=== PATIENT | female | born 1950 | race Caucasian/White ===

== ENCOUNTER 2018-08-09 08:38 | Outpatient (REF) | payer MEDICARE, SELFPAY ==
[2018-08-09 13:38] LABS: ALT 28 U/L (12-78); AST 21 U/L (15-37); HDL Cholesterol 48 mg/dL (40-60); LDL CHOLESTEROL 101 mg/dL (<100)
[2018-08-09 14:12] LABS: Creatine Kinase 69 U/L (26-192)
== END 2018-08-09 08:58 ==
LOC: NCHCN 08:38
PROVIDERS: PCP Nurse Practitioner Family; Visit Provider Nurse Practitioner Family
DX: E78.5 Hyperlipidemia, unspecified (principal)
CPT/HCPCS: 82550; 83721; 83718; 84450; 84460

== ENCOUNTER 2018-12-29 07:20 | Emergency (ER) | payer MEDICARE, SELFPAY ==
[2018-12-29 07:26] VITALS: BP 135/61; PULSE 78; RESP 14; TEMP 36.6; O2SAT 98
[2018-12-29] MEDS: predniSONE 20 MG TAB 60 MG PO (07:51)
[2018-12-29] MEDS: diphenhydrAMINE 25 MG CAP PO (07:51)
--- NOTE | 2018-12-29 07:52 | ED.GENADUL_ITS ---
Discharge Plan Disposition Patient Disposition: HOME Condition: Good Discharge Details Chief Complaint: RashLesion Clinical Impression: Hives Primary Care Provider: Nimo Argueta ED Provider: Fransisco Craft Home Meds and New Rx's Prescriptions: New diphenhydramine HCl [Benadryl] 25 MG capsule 25 mg PO Q6H Qty: 100 RF: 0 prednisone 50 MG tablet 50 mg PO DAILY Qty: 5 RF: 0 No Action rosuvastatin [Crestor] 10 MG tablet 40 mg PO DAILY RF: 0 Discharge Instructions Instructions: Urticaria (ED) Additional Instructions: Please take medication as directed. If you notice any worsening of your symptoms, or any new symptoms such as vomiting, diarrhea, fever, chills, shortness of breath, chest pain, numbness, weakness, or fainting , please return immediately to the emergency department for reevaluation. Please follow up with your primary care provider as soon as possible for reassessment and reevaluation. As always, it was a pleasure participating in your medical care today. Referrals: Nimo Argueta [Primary Care Provider] - Medical Decision Making This is a pleasant 68-year-old female who presents for evaluation of rash. Patient states that last night she began itching and then today she noted a rash over her chest abdomen back and axilla. No oral lesions, no complaint of difficulty swallowing, breathing. no oral lesions on exam. No lesions on the palms or soles. Patient absolutely denies any risk factors of change in perfume, soaps, shampoo, detergent, or any new foods whatsoever. She has a history of getting hives like this in the past usually secondary to stress. Is been a few years since she is static. With no red flags concerning for Martinez- Alfonzo syndrome, toxic epidermal macro lysis or staph scalded skin syndrome, no evidence of erythema multiforme, I feel the patient signs and symptoms are clinically consistent with widely quickly be brought on by histamine component from stress. We will give the patient Benadryl and steroids here, as well as prescription for home use. We discussed red flags for which to return the patient understands. I have extensively reviewed the treatment plan and discharge instructions with the patient and their family. I have addressed all patient concerns at this time. The patient and family was made aware of what symptoms to monitor for that would warrant a return to the emergency department. Discussed the plan with the patient and family, they demonstrate verbal understanding and agreement with our assessment and plan at this time. HPI General Date/Time Provider Initiated Documentation: 12/29/18 07:34 . HPI Narrative: This is a 68-year-old female with a past medical history of high cholesterol as well as hives secondary to stress that occurs occasionally, who presents today for evaluation of hives. Patient states that last night she began itching everywhere, and this morning she noticed a rash all over her axilla, back, chest abdomen and legs. It is notably pruritic. She denies any bleeding. She denies any lesions in her mouth, she denies any difficulty breathing or swallowing, she denies any shortness of breath. She states that the symptoms are similar to when she has had a previous episodes of hives. She denies any new pets, new detergents, new soaps, perfumes, new food, ingestion of oral shellfish recently, or any new foods in general. She had a burger on lettuce last nothing else. Patient has no other complaints at this time. No other modifying factors. Related Data Home Medications Medication Instructions Recorded Confirmed rosuvastatin [Crestor] 40 mg PO DAILY tab-cap 04/23/18 12/29/18 diphenhydramine HCl [Benadryl] 25 mg PO Q6H #100 cap 12/29/18 prednisone 50 mg PO DAILY #5 tab 12/29/18 Previous Rx's Medication Instructions Recorded diphenhydramine HCl [Benadryl] 25 mg PO Q6H #100 cap 12/29/18 prednisone 50 mg PO DAILY #5 tab 12/29/18 Allergies Allergy/AdvReac Type Severity Reaction Status Date / Time chlordiazepoxide HCl Allergy Severe Unverified 12/29/18 07:28 [From Librium] codeine Allergy Severe Unverified 12/29/18 07:28 Penicillins Allergy Severe Unverified 12/29/18 07:28 Sulfa (Sulfonamide Allergy Severe Unverified 12/29/18 07:28 Antibiotics) diazepam [From Valium] Allergy Unverified 12/29/18 07:28 General Stated Complaint: RashLesion ADIS: 3 Review of Systems Review of Systems All systems reviewed & are unremarkable except as noted in HPI and below PFSH Medical History Anxiety Cluster headache Depressive disorder Dyslipidemia Dysuria Elevated blood pressure reading Facial pain GERD (gastroesophageal reflux disease) Hyperlipidemia Low back pain Memory loss Mitral valve prolapse Osteoarthritis Other specified gastritis without mention of hemorrhage Recurrent UTI Trigeminal neuralgia Vaginal prolapse White matter disease Surgical History Abdominal hysterectomy Appendectomy Bilateral salpingectomy with oophorectomy Cholecystectomy Colonoscopy - MAC (06/21/18) Open Carpal Tunnel release Social History Smoking and Tabacco status: Former Tobacco Use Exam Narrative Exam Narrative: 1.Const: Well-nourished, Well-developed, appearing stated age 2.Eyes: PERRL, no conjunctival injection, and symmetrical lids. 3.ENT: Atraumatic external nose and ears. Moist MM. Neck: Symmetric, trachea midline, No thyromegaly. 4.CVS: +S1/S2, No murmurs or gallops. Peripheral pulses 2+ and equal in all extremities. Brisk capillary refill in all extremities. 5.RESP: Unlabored respiratory effort. Clear to auscultation bilaterally. No wheezes rales or rhonchi 6.GI: Soft, Nontender/Nondistended, No hepatosplenomegaly. No guarding or rebound. 7.MSK: Normocephalic/Atraumatic, Extremities w/o deformity or ttp No cyanosis or clubbing, Normal movement of all extremities 8.Skin: Patient demonstrates hives which are mild over her chest abdomen back arms axilla and legs. All are blanchable. Negative Nikolsky sign. No evidence of significant erythema suggestive of staph scalded skin syndrome, toxic epidermal macro lysis, Martinez-Alfonzo syndromes. No involvement on the hands or soles, no oral lesions. 9.Neuro: literature teacher II-XII grossly intact. Sensation grossly intact, no focal neurologic deficits. 10.Psych: (AAO) x3. Appropriate mood and affect Course Vital Signs Temperature 36.6 C 12/29/18 07:26 Pulse 78 12/29/18 07:26 Respiratory Rate 14 12/29/18 07:26 Blood Pressure 135/61 12/29/18 07:26 Pulse Oximetry 98 12/29/18 07:26 Temperature 36.6 C 12/29/18 07:26 Temperature Source Temporal Artery Scan 12/29/18 07:26 Pulse 78 12/29/18 07:26 Respiratory Rate 14 12/29/18 07:26 Respiratory Effort Non-Labored 12/29/18 07:27 Blood Pressure 135/61 12/29/18 07:26 Blood Pressure Position Sitting 12/29/18 07:26 Pulse Oximetry 98 12/29/18 07:26 Oxygen Delivery Method Room Air 12/29/18 07:26 Oxygen Flow Rate 0 12/29/18 07:26 Pain Level 0 12/29/18 07:26
--- NOTE | 2018-12-31 10:41 | NUR.NOTE ---
Nursing Note: Work Release note faxed to [facility] and copy mailed to patient. Solange Oropeza. Fax [facility] [phone].
== END 2018-12-29 08:00 | disposition home or self-care (01) ==
PROVIDERS: Emergency Provider Student in an Organized Health Care Education/Training Program; PCP Nurse Practitioner Family
DX: L50.9 Urticaria, unspecified (principal); L29.9 Pruritus, unspecified
CPT/HCPCS: 99283; J7512

== ENCOUNTER 2019-02-04 15:04 | Outpatient (REF) | payer MEDICARE, SELFPAY ==
[2019-02-04 19:34] LABS: Abs Immature Grans 0.01 k/cumm (0.0-0.09); Absolute Basophil Count 0.02 k/cumm (0.0-0.2); Absolute Eosinophil Count 0.17 k/cumm (0.0-0.7); Absolute Lymphocyte Count 1.05 k/cumm (1.2-3.4); Absolute Monocyte Count 0.37 k/cumm (0.11-0.7); Absolute Neutrophil Count 3.08 k/cumm (1.2-6.7); Basophils % 0.4; Eosinophils % 3.6; HCT 41.4 % (36.0-46.0); HGB 13.6 g/dL (12.0-15.5); Immature Grans % 0.2; Lymphocytes % 22.3; Mean Corp. HGB Concentration 32.9 g/dL (32.0-36.0); Mean Corpuscular Hemoglobin 27.5 pg (27.0-33.0); Mean Corpuscular Volume 83.6 fL (80-95); Mean Platelet Volume 11.7 fL (8.0-11.0); Monocytes % 7.9; Neutrophils % 65.6; Platelet Count 166 x1000/uL (130-400); RBC 4.95 m/cumm (4.00-5.20); RBC Distribution Width 13.8 % (11.7-14.6)
[2019-02-04 19:39] LABS: C-Reactive Protein 0.38 mg/dL (0.0-0.3)
[2019-02-04 20:33] LABS: ESR 17 MM/HR (0-30)
== END 2019-02-04 15:24 ==
LOC: NCHCN 15:04
PROVIDERS: PCP Nurse Practitioner Family; Visit Provider Nurse Practitioner Family
DX: R60.9 Edema, unspecified (principal)
CPT/HCPCS: 85652; 85025; 86140

== ENCOUNTER 2019-02-10 00:53 | Outpatient (CLI) | payer MEDICARE, OTHER, SELFPAY ==
--- NOTE | 2019-02-10 12:16 | DI.US_ITS ---
SYMPTOM/DIAGNOSIS: SOFT TISSUE SWELLING, R60.9 SOFT TISSUE ULTRASOUND NECK: Soft tissue ultrasound was performed to evaluate an area of questionable soft tissue swelling in the left cervical region. There are a few nonspecific visible lymph nodes, the largest measuring about 10 mm. in diameter. No mass is seen. CONCLUSION: Negative soft tissue ultrasound of the neck.
== END 2019-02-10 01:13 ==
PROVIDERS: PCP Nurse Practitioner Family; Visit Provider Nurse Practitioner Family
DX: R22.1 Localized swelling, mass and lump, neck (principal)
CPT/HCPCS: 76536

== ENCOUNTER 2019-02-21 18:00 | Emergency (ER) | payer MEDICARE, OTHER, SELFPAY ==
[2019-02-21 18:04] VITALS: BP 141/63; PULSE 80; RESP 16; TEMP 36.8; O2SAT 96
--- NOTE | 2019-02-21 18:55 | ED.GENADUL_ITS ---
Discharge Plan Disposition Patient Disposition: HOME Condition: Stable Discharge Details Chief Complaint: Headache Clinical Impression: Headache Primary Care Provider: Nimo Argueta ED Provider: Ana Cristina Rosa Home Meds and New Rx's Prescriptions: Continued rosuvastatin [Crestor] 10 MG tablet 40 mg PO DAILY RF: 0 estradiol [Vagifem] 10 mcg Tablet 10 mcg VAGINAL DAILY RF: 0 Discharge Instructions Instructions: Cluster Headache (ED), General Headache (ED) Additional Instructions: Your headaches appear similar to cluster headaches. It would be beneficial to follow-up with a neurologist for further evaluation of these headaches. Drink plenty of fluids and get plenty of rest. Take the Tylenol with codeine for headaches not relieved with ibuprofen. Be cautious with taking Tylenol in addition to Tylenol with codeine. Follow-up with your scheduled appointment with your primary care doctor on Sunday and for referral to neurology. Return immediately to the emergency department with any worsening or new concerning symptoms. Referrals: Kaci Chamorro MD [ [facility] STAFF PHYSICIAN] - Discharge Data Discharge Physician: Ana Cristina Rosa Medical Decision Making 68yo F w/ a h/o cluster headaches and trigeminal neuralgia who presents to the ED w/ a c/o R sided facial and headache for the past month. Also admits to watery right eye, sneezing, right-sided nasal discharge. States the symptoms appear similar with previous cluster headaches but these are more intense 5 years ago. She states these resolved more than 5 years ago after quitting smoking. Vitals within normal limits. PERRLA. No sinus tenderness. Normal ENT exam. Some tenderness to palpation of right cervical paraspinal region. No focal deficits. No meningeal signs. Patient states her pain is currently 1/10. She states she is not concerned about her pain at this time. She states she mainly came to the emergency department because she was directed by her primary care doctor. She states she is possibly concerned about a possible tumor in her head. As patient's pain is minimal with an essentially normal exam, I do not see an indication for lab work and patient is agreeable. She is declining any pain medication at this time. She is in agreement with plan for CT head. She had also stated that she was told more than 5 years ago that she had notable lesions on her brain on an MRI brain. She states she was not told to follow-up for this. She is instructed that the CT head can rule out any acute process, but if her symptoms persist or worsen, to follow-up with a primary care doctor or neurology for MRI brain. She denies any sudden onset or thunderclap quality so doubt subarachnoid hemorrhage. She denies any fever, diffuse neck pain, no meningeal signs, so doubt meningitis. 193 --CT head negative. Patient states her headache is currently 0-1/10. Patient is requesting to go home. She is declining any medication here. Patient states that she has tolerated Tylenol with codeine in the past for headaches. Her allergy list includes codeine. She states this previously caused hives but states that she is taking this since then without any reaction. She denies any history of anaphylaxis with codeine. Discussed with patient that her presentation does appear consistent with cluster headaches. As her pain is minimal, I do not see an indication for Imitrex SC or oxygen and she is agreeable. We will send home with 2 tabs of Tylenol with codeine. She is recommended to follow-up with her scheduled appoint with her primary care doctor this Sunday and to also call neurology for a follow-up appointment for their evaluation of her headaches. She is instructed to return here immediately if worse. Medical Records Medical records reviewed: Yes I reviewed the patient's medical records. HPI General Mode of arrival: ambulatory . Date/Time Provider Initiated Documentation: 02/21/19 18:08 . Limitations to Documentation: no limitations . Information obtained by: patient . HPI Narrative: Patient is a 68-year-old female with a history of cluster headaches and trigeminal neuralgia who presents to the ED with a complaint of right-sided head and facial headache for the past month. She states the headaches mainly occur at nighttime and wake her up throughout the night and in the middle of her sleep. She also admits to watery right eye and right sided nasal discharge. She is also complaining of occasional sneezing. She denies blurry vision, fever, vomiting, unilateral extremity numbness or weakness. She states she was first diagnosed with cluster headaches and trigeminal neuralgia more than 5 years ago. She states she quit smoking and these completely resolved. She states she had a previous MRI brain more than 5 years ago and was told she had lesions on her brain but was otherwise not instructed to follow-up with anyone regarding this. She states she has had no headaches until they returned 1 month ago. She denies any recent injury, or recent illness. She states her headache is currently 1/10. She states her headaches appears similar to previous cluster headaches with the similar URI symptoms and location of pain, but states her previous cluster headaches were much more intense and severe. Related Data Home Medications Medication Instructions Recorded Confirmed rosuvastatin [Crestor] 40 mg PO DAILY tab-cap 04/23/18 02/21/19 estradiol [Vagifem] 10 mcg VAGINAL DAILY 02/21/19 02/21/19 Allergies Allergy/AdvReac Type Severity Reaction Status Date / Time chlordiazepoxide HCl Allergy Severe Unverified 02/21/19 18:13 [From Librium] codeine Allergy Severe Unverified 02/03/19 10:47 Penicillins Allergy Severe Unverified 02/03/19 10:47 Sulfa (Sulfonamide Allergy Severe Unverified 02/03/19 10:47 Antibiotics) diazepam [From Valium] Allergy Unverified 02/03/19 10:47 General Stated Complaint: Headache ADIS: 3 Review of Systems Review of Systems All systems reviewed & are unremarkable except as noted in HPI and below Constitutional Reports as per HPI, Denies chills, Denies fever(s) and Reports headache(s) Eyes Denies blurry vision and Reports other (Watery right eye) ENT Denies dizziness, Reports headache(s), Reports nasal congestion, Reports nasal discharge, Denies sore throat and Denies throat swelling Cardiovascular Denies chest pain and Denies dyspnea Respiratory Denies cough and Denies dyspnea Gastrointestinal Denies abdominal pain, Denies diarrhea and Denies vomiting Genitourinary Denies hematuria and Denies dysuria Musculoskeletal Denies back pain and Denies numbness Integumentary/Breasts Denies lesions and Denies rash Neurologic Denies dizziness, Reports headache(s), Denies focal weakness and Denies numbness Allergic/Immunologic Denies throat swelling [facility] Medical History Anxiety Cluster headache Depressive disorder Dyslipidemia Dysuria Elevated blood pressure reading Facial pain GERD (gastroesophageal reflux disease) Hyperlipidemia Low back pain Memory loss Mitral valve prolapse Osteoarthritis Other specified gastritis without mention of hemorrhage Recurrent UTI Trigeminal neuralgia Vaginal prolapse White matter disease Surgical History Abdominal hysterectomy Appendectomy Bilateral salpingectomy with oophorectomy Cholecystectomy Colonoscopy - MAC (06/21/18) Open Carpal Tunnel release Social History Smoking/Tobacco Use Status: Former Tobacco Use Alcohol Intake: current Alcohol Intake frequency: a few times a week Drug use: Never Number of Children: 5 What is your relationship status?: Panel score (0-1 are the most socially isolated patients): 1 Seatbelt use: always Do you feel safe at home: Yes Do you feel safe in your relationship?: Yes History History 5 Para Hx # Term Pregnancies 5 Multiple births Hx # Pregnancies Ectopic pregnancies AB induced Hx Number of Living Children AB spontaneous Exam Const General: cooperative and healthy appearing Orientation: alert and awake HENMT Head: normal to inspection Ears: hearing grossly normal bilaterally, external ears normal and TM's normal bilaterally General nose exam: external nose normal Face and sinus: normal facial exam and sinuses nontender Mouth: oral mucosae normal Teeth and gingiva: dentition normal Throat: posterior oropharynx normal Eyes General: appearance normal, both eyes and all related structures Eyelids: eyelids normal EOM: EOM intact bilaterally Neck Neck: normal visual inspection Lymphatic: no lymphadenopathy noted Chest Chest: normal inspection of the chest Resp Effort & Inspection: normal respiratory effort and able to speak in complete sentences Auscultation: clear to auscultation bilaterally Cardio Rhythm: regular rhythm GI Inspection: normal to inspection Palpation: soft, not firm, no guarding, no hepatosplenomegaly, no masses and nontender Auscultation: normal bowel sounds Back/Spine/Pelvis Back: no CVA tenderness Skin General skin exam: no rashes or lesions noted Neuro General: alert, awake, oriented x3, moves all extremities, no meningeal signs and no focal motor deficits Cranial Nerves: CN's II-XI intact bilaterally Cognition: normal cognition Speech: speech normal Gait: normal gait Motor: muscle tone normal throughout and strength 5/5 throughout Sensory Exam: no sensory deficits noted Extrem General: normal to inspection, full ROM and normal capillary refill Psych Appearance: grossly normal Mental Status: mental status grossly normal Speech and Movement: speech and movement normal Affect: normal affect Thought Process: normal Course Vital Signs Temperature 98.2 F 02/21/19 18:04 Pulse 80 02/21/19 18:04 Respiratory Rate 16 02/21/19 18:04 Blood Pressure 141/63 H 02/21/19 18:04 Pulse Oximetry 96 02/21/19 18:04 Temperature 98.2 F 02/21/19 18:04 Temperature Source Temporal Artery Scan 02/21/19 18:04 Pulse 80 02/21/19 18:04 Respiratory Rate 16 02/21/19 18:04 Respiratory Effort Non-Labored 02/21/19 18:12 Blood Pressure 141/63 H 02/21/19 18:04 Blood Pressure Position Sitting 02/21/19 18:04 Pulse Oximetry 96 02/21/19 18:04 Oxygen Delivery Method Room Air 02/21/19 18:04 Oxygen Flow Rate 0 02/21/19 18:04 Pain Level 1 02/21/19 18:14
--- NOTE | 2019-02-21 19:09 | DI.CT_ITS ---
SYMPTOM/DIAGNOSIS: RT SIDED HEADACHE,RT FACIAL PAIN CRANIAL CT (WITHOUT CONTRAST): A noncontrast cranial CT was performed. The ventricular system is normal in appearance. There is no evidence of an intracranial mass lesion. There is no evidence of a subdural or epidural hematoma. No focal areas of decreased attenuation are seen. CONCLUSION: Normal noncontrast Cranial CT.
--- NOTE | 2019-02-21 19:17 | DI.VRAD_ITS ---
EXAM: CT Head Without Contrast EXAM DATE/TIME: 02/21/2019 6:54 PM CLINICAL HISTORY: 68 years old, female; Pain; Headache; Headache not specified TECHNIQUE: Imaging protocol: Axial computed tomography images of the head/brain without contrast. Coronal and sagittal reformatted images were created and reviewed. Radiation optimization: All CT scans at this facility use at least one of these dose optimization techniques: automated exposure control; mA and/or kV adjustment per patient size (includes targeted exams where dose is matched to clinical indication); or iterative reconstruction. COMPARISON: US soft tissue head or neck 02/10/2019 11:47 AM FINDINGS: Brain: No acute intracranial hemorrhage. No mass lesion or mass effect. Greene/white matter differentiation is unremarkable. Cerebellum is unremarkable. Cisterns are unremarkable. Brainstem is unremarkable. No suprasellar mass. Ventricles: Normal. No ventriculomegaly. Bones/joints: Unremarkable. No acute fracture. Sinuses: Visualized sinuses are unremarkable. No acute sinusitis. Mastoid air cells: Visualized mastoid air cells are unremarkable. No mastoid effusion. Soft tissues: Unremarkable. IMPRESSION: No evidence of pathology. Dictated and Authenticated by: Annie Weston MD. Ordering:DANIEL De La Paz MD
[2019-02-21 20:09] VITALS: BP 138/63; PULSE 80; RESP 16; TEMP 36.8; O2SAT 96
== END 2019-02-21 20:15 | disposition home or self-care (01) ==
PROVIDERS: Emergency Provider Physician Assistant; PCP Nurse Practitioner Family
DX: R51 Headache (principal)
CPT/HCPCS: 99284; 70450

== ENCOUNTER 2019-03-12 10:29 | Outpatient (REF) | payer MEDICARE, SELFPAY ==
[2019-03-12 21:26] LABS: Anion Gap 10.1 mmol/L (3-11); BUN 16 mg/dL (7-18); CO2 26.9 mmol/L (21.0-32.0); CREATININE 0.87 mg/dL (0.55-1.02); Calcium 9.7 mg/dL (8.5-10.1); Chloride 103 mmol/L (98-107); Glucose 79 mg/dL (70-100); Potassium 4.2 mmol/L (3.5-5.1); Sodium 140 mmol/L (136-145)
== END 2019-03-12 10:49 ==
LOC: NCHCN 10:29
PROVIDERS: PCP Nurse Practitioner Family; Visit Provider Nurse Practitioner Family
DX: G44.019 Episodic cluster headache, not intractable (principal)
CPT/HCPCS: 80048

== ENCOUNTER 2019-04-08 14:52 | Outpatient (REF) | payer MEDICARE, SELFPAY ==
[2019-04-08 21:35] LABS: ALT 33 U/L (12-78); AST 19 U/L (15-37); Albumin 3.7 g/dL (3.4-5.0); Alkaline Phosphatase 69 U/L (46-116); Bilirubin, Direct 0.07 mg/dL (0.00-0.20); Bilirubin, Total 0.2 mg/dL (0.2-1.0); Lipase 159 U/L (73-393); Total Protein 6.8 g/dL (6.4-8.2)
== END 2019-04-08 15:12 ==
LOC: NCHCN 14:52
PROVIDERS: PCP Nurse Practitioner Family; Visit Provider Nurse Practitioner Family
DX: R10.9 Unspecified abdominal pain (principal); G44.019 Episodic cluster headache, not intractable
CPT/HCPCS: 80076; 83690

== ENCOUNTER 2019-04-10 10:29 | Outpatient (REF) | payer MEDICARE, SELFPAY ==
[2019-04-15 12:07] LABS: Helicobacter pylori Ag, Feces Negative (NEGAT)
== END 2019-04-10 10:49 ==
LOC: NCHCN 10:29
PROVIDERS: PCP Nurse Practitioner Family; Visit Provider Nurse Practitioner Family
DX: R10.9 Unspecified abdominal pain (principal)
CPT/HCPCS: 87338

== ENCOUNTER → 2019-04-24 00:48 | Outpatient (CLI) | payer MEDICARE, SELFPAY ==
--- NOTE | 2019-04-24 07:23 | DI.US_ITS ---
SYMPTOM/DIAGNOSIS: ABD BLOATING, R14.0, ABD PAIN R10.9 TENDERNESS S/P JOSE M, ? RETAINED STONE ABDOMINAL ULTRASOUND: The aorta and vena cava are normal. The liver is mildly echogenic raising the possibility of fatty infiltration. The patient is status post cholecystectomy. There is no evidence of ductal dilatation. The pancreas is normal. The spleen is intact. The kidneys are unremarkable. There is no evidence of abdominal free fluid. SUMMARY: Findings consistent with a fatty liver in this patient who is status post cholecystectomy
== END ==
PROVIDERS: PCP Nurse Practitioner Family; Visit Provider Nurse Practitioner Family
DX: R14.0 Abdominal distension (gaseous) (principal); R10.9 Unspecified abdominal pain; Z90.49 Acquired absence of other specified parts of digestive tract; K76.0 Fatty (change of) liver, not elsewhere classified
CPT/HCPCS: 76700

== ENCOUNTER → 2019-05-06 08:25 | Outpatient (BNVA) | payer MEDICARE, OTHER, SELFPAY | PROVIDERS: PCP Nurse Practitioner Family; Referring Provider Nurse Practitioner Family; Visit Provider Nurse Practitioner Adult Health | DX: G44.019 Episodic cluster headache, not intractable (principal) | CPT/HCPCS: 99204; 99214 ==

== ENCOUNTER 2019-06-02 12:16 | Outpatient (REF) | payer MEDICARE, SELFPAY ==
[2019-06-02 21:55] LABS: Anion Gap 10.4 mmol/L (3-11); CO2 25.6 mmol/L (21.0-32.0); Chloride 106 mmol/L (98-107); Ferritin 226 ng/mL (8-388); Potassium 4.5 mmol/L (3.5-5.1); Sodium 142 mmol/L (136-145)
[2019-06-02 22:41] LABS: Iron 51 ug/dL (50-175); Total Iron Binding Capacity 274 ug/dL (250-450); Transferrin Sat 19 % (15-50)
[2019-06-04 11:18] LABS: Hepatitis B Surface Ag Negative (NEGAT); Hepatitis C Ab w Rflx HCV PCR Negative (NEGAT)
[2019-06-04 11:40] LABS: HBs Antibody, Quant <3.1 mIU/mL; Hepatitis B Surface Ab Negative
[2019-06-04 11:48] LABS: Hep A Total Ab w Rflx IgM Positive (NEGAT)
[2019-06-06 12:54] LABS: Hep A Antibody IgM Negative (NEGAT)
== END 2019-06-02 12:36 ==
LOC: NCHCN 12:16
PROVIDERS: PCP Nurse Practitioner Family; Visit Provider Nurse Practitioner Family
DX: R14.0 Abdominal distension (gaseous) (principal); R10.9 Unspecified abdominal pain; Z01.84 Encounter for antibody response examination; K76.0 Fatty (change of) liver, not elsewhere classified
CPT/HCPCS: 80051; 86706; 86709; 86803; 87340; 82728; 83540; 83550

== ENCOUNTER → 2019-06-12 10:53 | Outpatient (BNVA) | payer MEDICARE, SELFPAY | PROVIDERS: PCP Nurse Practitioner Family; Referring Provider Nurse Practitioner Family; Visit Provider Physical Therapy Assistant | DX: R10.9 Unspecified abdominal pain (principal); R14.0 Abdominal distension (gaseous) | CPT/HCPCS: 99213 ==

== ENCOUNTER 2019-06-24 06:17 | Day surgery (SDC) | payer MEDICARE, OTHER, SELFPAY ==
[2019-06-24 06:39] VITALS: BP 134/65; PULSE 66; RESP 16; TEMP 36.5; O2SAT 97
[2019-06-24] MEDS: Lactated Ringers 1,000 ML 80 ML IV (06:49)
--- NOTE | 2019-06-24 07:32 | BOWEL_PTH ---
PATIENT: Lexy Beauchamp LOC: [facility] U#:[id number] AGE/SX: 69/F ROOM: RE06/24/[address]: Leyda Son MD : [id number] BED: DIS: 06/24/2019 SPEC #: [id number] RECD: 06/24/19 12:32 STATUS: SUKHJINDER REQ #: [id number] OLI: 06/24/19 07:[address]: Leyda Son DEPT: Surgical Specimen RECD BY: Antoinette Roberson ENTERED: 06/24/19 12:32 SP TYPE: Bowel OTHR DR: Nimo Argueta Tissues: 1 - BIOPSY BOWEL 2 - STOMACH BIOPSY Procedures: GROSS AND MICRO LEVEL 4 Comments: [id number]
--- NOTE | 2019-06-24 07:42 | W.PM.DSUDISC ---
Discharge Plan Disposition Patient Disposition: HOME Condition: Good Discharge Details Reason For Visit: Abdominal pain Attending Provider: Leyda Son Primary Care Provider: Nimo Argueta Home Meds and New Rx's Prescriptions: Continued ranitidine HCl [Zantac] 150 mg tablet 150 mg PO BID RF: 0 rosuvastatin [Crestor] 10 MG tablet 40 mg PO DAILY RF: 0 gabapentin 300 mg capsule 600 mg PO TID PRNRF: 0 estradiol [Vagifem] 10 mcg Tablet 10 mcg VAGINAL DAILY RF: 0 Discharge Instructions Additional Instructions: Findings: Your EGD showed mild inflammation of the stomach (gastritis) but no ulcers Follow up: My office will send a letter with biopsy results. Continue the ranitidine and consider changing to omeprazole if that is not effective. Please call if you develop: fevers >101.5 Nausea or Vomiting Abdominal pain that is not transient DAY SURGERY UNIT 1. Because there will be medication in your system for the next 24 hours, you may feel a little sleepy. Your coordination will be affected. Therefore: a. Do not drive or operate dangerous equipment for 24 hours. b. Do not drink alcohol beverages for 24 hours (not even beer). c. Plan to go home and rest for the day. 2. Generally there are no restrictions on your activity after a day or so has gone by, but you may feel a bit fatigued for a few days. 3 After you arrive home you may have a light meal and return to a normal diet as you can tolerate it without feeling sick to your stomach. 4. After surgery, you may feel pain or discomfort. This should be only transient, but if it persists please contact your doctor. 5. If there are any questions regarding the findings of your procedure, please feel free to contact your doctor. 6. If you are unable to contact your doctor with a problem, contact the hospital at [phone]. 7. Continue all your regular medications unless directed otherwise. I understand the above instructions and have no questions. Signature of Patient or Responsible Adult Escort Date/Time Name of Responsible Adult Escort Signature of Nurse Date/Time Activity:: Activity as Tolerated Diet:: As Tolerated Discharge Orders Discharge Orders: Discharge Order (Routine); Ordered 06/24/19 Ordered By: Leyda Son DS: Diagnosis Discharge Diagnosis (1) Mild chronic gastritis: Status: Acute
[2019-06-24 08:22] VITALS: BP 119/67; PULSE 69; RESP 17; TEMP 36.6; O2SAT 94
--- NOTE | 2019-06-24 09:46 | ENDO_ITS ---
DATE OF PROCEDURE: June 24, 2019 PREOPERATIVE DIAGNOSIS: Epigastric pain. POSTOPERATIVE DIAGNOSIS: Mild gastritis. PROCEDURE: Esophagogastroduodenoscopy with duodenal and gastric biopsies. SURGEON: Leyda Son M.D. ANESTHESIA: Monitored Anesthesia Care. INDICATIONS: This is a 69-year-old woman who complains of epigastric pain. She does have a history of peptic ulcer disease. She had an EGD remotely. Stool testing for H. pylori was normal. She has noted some slight improvement taking Ranitidine. She has had her gallbladder removed. Recent abdomi nal ultrasound was unremarkable. PROCEDURE: She was placed in the left lateral decubitus position. Propofol was titrated to sedation . The scope was advanced into her esophagus under direct visualization, passed into the stomach and duodenum. There was no duodenitis or ulcers noted. Biopsies are taken from the second portion of th e duodenum to evaluate for Celiac disease. The stomach itself revealed mild gastritis, primarily in the gastric antrum. Retroflexion of the fundus and lesser curvature showed no other abnormalities. Biopsies were taken from the gastric antrum. The GE junction exhibited no masses, Colon's, inflamm ation or strictures. The air was suctioned from the stomach and the scope withdrawn with no other es ophageal lesions found. She tolerated the procedure well and was stable to recovery. My office will contact her with biopsy results. If she does not have adequate symptom control with the Ranitidine, she can consider switching to a proton pump inhibitor. cc: Nimo Argueta N.P.
== END 2019-06-24 08:50 | disposition home or self-care (01) ==
PROVIDERS: PCP Nurse Practitioner Family; Visit Provider Surgery
PROC: 0DJ68ZZ Inspection of Stomach, Via Natural or Artificial Opening Endoscopic (ICD-10-PCS; CPT 43235; principal; 2019-06-24 07:30)
DX: R10.13 Epigastric pain (principal); K29.70 Gastritis, unspecified, without bleeding; K31.89 Other diseases of stomach and duodenum; Z87.11 Personal history of peptic ulcer disease; K21.9 Gastro-esophageal reflux disease without esophagitis
CPT/HCPCS: 43239; 88305

== ENCOUNTER 2019-07-07 12:52 | Outpatient (REF) | payer MEDICARE, OTHER, SELFPAY ==
[2019-07-07 21:18] LABS: Anion Gap 10.3 mmol/L (3-11); BUN 13 mg/dL (7-18); CO2 26.7 mmol/L (21.0-32.0); CREATININE 0.79 mg/dL (0.55-1.02); Calcium 9.2 mg/dL (8.5-10.1); Chloride 104 mmol/L (98-107); Glucose 85 mg/dL (70-100); Potassium 4.8 mmol/L (3.5-5.1); Sodium 141 mmol/L (136-145)
== END 2019-07-07 13:12 ==
LOC: NCHCN 12:52
PROVIDERS: PCP Nurse Practitioner Family; Visit Provider Nurse Practitioner Family
DX: R10.9 Unspecified abdominal pain (principal); R14.0 Abdominal distension (gaseous); M76.71 Peroneal tendinitis, right leg
CPT/HCPCS: 80048

== ENCOUNTER 2019-07-15 00:41 | Outpatient (CLI) | payer MEDICARE, OTHER, SELFPAY ==
--- NOTE | 2019-07-15 08:00 | DI.CT_ITS ---
SYMPTOM/DIAGNOSIS: ABDOMINAL BLOATING R14.0, ABDOMINAL PJAIN R10.9 CT ABDOMEN AND PELVIS: Images were performed from the lung bases through the ischial tuberosities after IV and oral contrast. The lung bases are clear. The heart size is normal. The liver shows slight fatty infiltration. The patient is status post cholecystectomy. There is no biliary dilatation. The spleen, pancreas, adrenals and kidneys appear normal. The patient is status post hysterectomy. The bladder appears normal. The left ovary appears normal. The right ovary is not definitely seen. There are atherosclerotic changes of the abdominal aorta and iliac arteries with some luminal narrowing distally. No bowel dilatation or inflammatory changes are seen. The appendix is not identified. There are no right lower quadrant inflammatory changes. Degenerative disc changes are seen at L2-3. IMPRESSION: Status post hysterectomy and cholecystectomy. No acute abnormality is seen in the abdomen or pelvis.
--- NOTE | 2019-07-15 08:38 | DI.MAMMO_ITS ---
SYMPTOM/DIAGNOSIS: SCREENING, PREVENTIVE HEALTH CARE Z00.00 BILATERAL SCREENING MAMMOGRAM: Mammograms were interpreted according to the usual protocol including computer analysis with CAD system, tomosynthesis and C view imaging. Comparison is made with exams from 2013 through 2018. The breasts are composed of scattered fibroglandular densities, breast density category B. No suspicious masses or suspicious microcalcifications are seen. There has been no significant change. IMPRESSION: Category 1, negative mammogram. Yearly screening mammography is recommended. Breast density category B. SA ASSESSMENT OF FINDINGS: Negative. Category 1. Patient will receive a letter notifying them of these results. BI-RADS category B. There are scattered areas of fibroglandular density.
[2019-07-15] MEDS: Omnipaque 350 MG/ML 100 ML BTL IJ (09:24)
[2019-07-15] MEDS: Omnipaque 350 MG/ML 50 ML BTL IJ (09:24)
[2019-07-15] MEDS: Breeza Beverage 473 ML BTL PO (09:25)
== END 2019-07-15 01:01 ==
PROVIDERS: PCP Nurse Practitioner Family; Visit Provider Nurse Practitioner Family
DX: Z12.31 Encounter for screening mammogram for malignant neoplasm of breast (principal); R14.0 Abdominal distension (gaseous); R10.9 Unspecified abdominal pain; K76.0 Fatty (change of) liver, not elsewhere classified; Z90.710 Acquired absence of both cervix and uterus; Z90.49 Acquired absence of other specified parts of digestive tract
CPT/HCPCS: 77063; 77067; 74177; J3490; Q9967

== ENCOUNTER → 2019-07-28 09:06 | Outpatient (BNVA) | payer MEDICARE, SELFPAY | PROVIDERS: PCP Nurse Practitioner Family; Visit Provider Nurse Practitioner Adult Health | DX: G44.001 Cluster headache syndrome, unspecified, intractable (principal) | CPT/HCPCS: 99213 ==

== ENCOUNTER 2019-08-19 09:58 | Outpatient (CLI) | payer MEDICARE, SELFPAY ==
--- NOTE | 2019-08-19 10:18 | DI.RAD_ITS ---
EXAM: XR ANKLE RT COMPLETE INDICATION: PERONEAL TENDINITIS OF RT LEG, M76.71, PERSISTENT SWELLING OF RT ANKLE. COMPARISON: No exams were available for comparison TECHNIQUE: 2D digital imaging was performed. FINDINGS: There is mild soft tissue swelling beneath the malleoli, lateral greater. There is no fracture or a nkle mortise widening. There is minimal periarticular spurring. IMPRESSION: Mild soft tissue swelling and mild degenerative changes.
== END 2019-08-19 10:18 ==
PROVIDERS: PCP Nurse Practitioner Family; Visit Provider Nurse Practitioner Family
DX: M25.571 Pain in right ankle and joints of right foot (principal); M76.71 Peroneal tendinitis, right leg; M79.89 Other specified soft tissue disorders
CPT/HCPCS: 73610

== ENCOUNTER 2019-10-02 02:22 | Outpatient (CLI) | payer MEDICARE, OTHER, SELFPAY ==
--- NOTE | 2019-10-02 09:35 | DI.MRI_ITS ---
EXAM: MR LUMBAR SPINE WO CLINICAL HISTORY: BACK PAIN LUMBAR WITH RADICULOPATHY, M54.16. TECHNIQUE: Multiplanar multisequence MRI of the Lumbar spine was performed. COMPARISON: No exams were available for comparison FINDINGS: Bones: The last intervertebral disc space is designated the L5/S1 level for the numbering purpose of this examination. The vertebral body heights are well maintained. Alignment is satisfactory. Endpla te degenerative signal changes are seen at multiple levels of the lumbar spine. Cord: The conus tip ends at the T12 level. It is of normal size and signal intensity. T12-L1: No disc herniations or bulges are present. No significant central spinal canal or neural for aminal stenosis is present. L1-2: No disc herniations or bulges are present. No significant central spinal canal or neural fora neo stenosis is present. L2-3: There is disc desiccation and a diffuse disc bulge. There are degenerative changes of the face ts. These all contribute to cause mild to moderate central spinal canal stenosis. There is also mil d bilateral neural foraminal stenosis. L3-4: There is disc desiccation. There is a diffuse disc bulge. No focal disc herniation is seen. There is mild narrowing of the central spinal canal. Mild narrowing of the neural foramen is seen b ilaterally. L4-5: There is disc desiccation. There is a diffuse disc bulge. There are degenerative changes of the facet joints. The findings contribute to cause mild narrowing of the central spinal canal. Ther e is mild narrowing of the left neural foramen. No significant right neural foraminal stenosis is se en. L5-S1: No disc herniations or bulges are present. There are degenerative changes of the facets. No significant central spinal canal or neural foraminal stenosis is present. Soft tissues: The visualized SI joints and sacrum are well maintained. The paraspinal soft tissues ar e unremarkable. IMPRESSION: Multilevel degenerative changes in the lumbar spine resulting in central spinal canal and neural fora neo stenosis. See the above discussion for complete details.
== END 2019-10-02 02:42 ==
PROVIDERS: PCP Nurse Practitioner Family; Visit Provider Nurse Practitioner Family
DX: M54.16 Radiculopathy, lumbar region (principal); M51.16 Intervertebral disc disorders with radiculopathy, lumbar region; M47.26 Other spondylosis with radiculopathy, lumbar region; M48.061 Spinal stenosis, lumbar region without neurogenic claudication
CPT/HCPCS: 72148

== ENCOUNTER → 2020-03-09 10:20 | Outpatient (BNVA) | payer MEDICARE, OTHER, SELFPAY | PROVIDERS: PCP Nurse Practitioner Family; Referring Provider Nurse Practitioner Family; Visit Provider Nurse Practitioner Adult Health | DX: G44.019 Episodic cluster headache, not intractable (principal) | CPT/HCPCS: 99212; 99441 ==

== ENCOUNTER 2020-06-02 09:07 | Outpatient (REF) | payer MEDICARE, SELFPAY ==
[2020-06-02 21:32] LABS: ALT 37 U/L (14-59); AST 25 U/L (15-37); Anion Gap 7.9 mmol/L (3-11); BUN 16 mg/dL (7-18); CO2 30.1 mmol/L (21.0-32.0); CREATININE 0.89 mg/dL (0.55-1.02); Calcium 9.3 mg/dL (8.5-10.1); Chloride 105 mmol/L (98-107); Creatine Kinase 128 U/L (26-192); Glucose 111 mg/dL (74-106); Potassium 5.1 mmol/L (3.5-5.1); Sodium 143 mmol/L (136-145)
[2020-06-02 22:16] LABS: Calculated LDL 94 mg/dL (<100); Cholesterol 166 mg/dL (<200); HDL Cholesterol 52 mg/dL (40-60); Triglyceride 102 mg/dL (<150)
== END 2020-06-02 09:27 ==
LOC: NCHCN 09:07
PROVIDERS: PCP Nurse Practitioner Family; Visit Provider Nurse Practitioner Family
DX: E78.5 Hyperlipidemia, unspecified (principal); M47.816 Spondylosis without myelopathy or radiculopathy, lumbar region; G44.019 Episodic cluster headache, not intractable; K21.9 Gastro-esophageal reflux disease without esophagitis; Z63.79 Other stressful life events affecting family and household; Z02.89 Encounter for other administrative examinations
CPT/HCPCS: 80048; 80061; 82550; 84450; 84460

== ENCOUNTER 2020-06-21 15:45 | Emergency (ER) | payer MEDICARE, SELFPAY ==
[2020-06-21 15:49] VITALS: BP 137/67; PULSE 74; TEMP 36.7; O2SAT 98
--- NOTE | 2020-06-21 16:07 | W.ED.GENAD ---
Discharge Plan Disposition Patient Disposition: HOME Condition: Good Discharge Details Chief Complaint: Orthopedic Clinical Impression: Ankle sprain, Foot sprain Primary Care Provider: Nimo Argueta ED Provider: Renetta Curry Home Meds and New Rx's Prescriptions: Continued sumatriptan [Imitrex] 20 mg/actuation spray,non-aerosol 20 mg ESTHER ONCE Qty: 6 RF: 1 ranitidine HCl [Zantac] 150 mg tablet 150 mg PO BID RF: 0 rosuvastatin [Crestor] 10 MG tablet 40 mg PO DAILY RF: 0 ibuprofen 200 mg Tablet 800 mg PO Q6H PRNRF: 0 gabapentin 600 mg tablet 600 mg PO QID RF: 0 estradiol [Vagifem] 10 mcg Tablet 10 mcg VAGINAL DAILY RF: 0 Discharge Instructions Instructions: Ankle Sprain (ED) Additional Instructions: Your x-rays are reassuring today with no acute fracture noted. Encourage rest, ice, elevation. Tylenol and/or ibuprofen as needed for discomfort. Please continue with boot while pain persists. Please follow-up with primary care in the next 1 to 2 weeks for reevaluation. If you develop sensation changes, weakness, fevers or other new/worsening symptoms please seek care urgently once again. Please avoid activities that cause increased discomfort. Referrals: Nimo Argueta [Primary Care Provider] - Discharge Data Discharge Date/Time-TO BE ENTERED AT DEPARTURE: 06/21/20 17:27 Medical Decision Making Patient is a pleasant 70-year-old female presenting today with chief complaint of right ankle pain. She reports that the pain began this morning after she rolled her ankle. She reports that she tripped when in her bathroom, struck washing machine prior to falling to the ground. Indicates internal rotational injury as source of the discomfort. She indicates the lateral aspect of the ankle and foot is area of her discomfort. 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 She reports that after this stressful work the pain was increased. She does report that she has chronic weak ankles. She denies any previous surgeries to this ankle. She denies any numbness or tingling. Denies other injury time of the incident. Denies any headache, LOC. No chest pain, shortness of breath, nausea vomiting. Denies any incontinence. States that since increasing her discomfort, she has had difficulty with ambulation. She did take ibuprofen approximately 3 hours prior to arrival. On exam, patient is resting comfortably. She is a small on the swelling on the lateral aspect of the left ankle. Neurovascularly intact. Range of motion is quite limited but this seems to be more for pain. No pain over the fibular head or neck. No break in the skin. No crepitus. She does have discomfort with palpation over the lateral malleolus and ATFL. Pain seems to be maximal over the ATFL. Just under some discomfort in the foot, more mid lateral. Not point tender over the proximal fifth metatarsal. Intact capillary refill, sensation intact, able to move all toes. No pain over the Achilles tendon, negative Flores test. No pain with palpation about the heel or bottom of the foot. We will augment the ibuprofen with Tylenol and will obtain imaging of the ankle and foot. FINDINGS: Bones/joints: There is a small Achilles tendon spur. There is no evidence of a fracture or a dislocation. Soft tissues: Normal. IMPRESSION: No evidence of a fracture or a dislocation. FINDINGS: Bones/joints: There is no evidence of a fracture or dislocation. There is a small Achilles tendon spur. Soft tissues: There is soft tissue swelling about the ankle. This could represent a soft tissue injury. IMPRESSION: Soft tissue swelling about the ankle could represent a soft tissue injury. Clinical correlation is recommended. Achilles tendon spurs as above. Discussed these findings with patient. Advised that her history exam is most consistent with sprain. Encourage rest, ice, elevation. Tylenol and ibuprofen as needed for discomfort. She was given return precautions. I did advise follow-up with her primary care in the next 1 to 2 weeks for reevaluation if pain persist. She does report that she does have a upcoming appointment with her primary care. We discussed activities that she should avoid. To help with discomfort and stabilization we will fit her with a walking boot. All of her questions or concerns were addressed and she is in agreement this plan. HPI General Mode of arrival: wheelchair. Date/Time Provider Initiated Documentation: 06/21/20 15:46. Limitations to Documentation: no limitations. Information obtained by: patient and RN notes reviewed. History of Present Illness 70 year old F presents to the emergency department with the chief complaint of left ankle and foot pain, described as severe, with intensity rated at 8. Quality is described as aching, and is localized to the left and lower extremity. Patient reports no radiation. Patient started experiencing this hour(s) and it has been constant. Immobilization improves symptom(s), Movement worsens symptoms . Patient notes no other symptoms.. Patient did receive the following treatments prior to arrival, NSAID Related Data Home Medications Medication Instructions Recorded Confirmed rosuvastatin [Crestor] 40 mg PO DAILY tab-cap 04/23/18 06/21/20 estradiol [Vagifem] 10 mcg VAGINAL DAILY 02/21/19 06/21/20 ranitidine HCl 150 mg tablet 150 mg PO BID 06/10/19 06/21/20 sumatriptan 20 mg/actuation nasal 20 mg ESTHER ONCE #6 each 07/28/19 06/21/20 spray gabapentin 600 mg PO QID 06/21/20 06/21/20 ibuprofen 800 mg PO Q6H PRN 06/21/20 06/21/20 Previous Rx's Medication Instructions Recorded sumatriptan 20 mg/actuation nasal 20 mg ESTHER ONCE #6 each 07/28/19 spray Allergies Allergy/AdvReac Type Severity Reaction Status Date / Time chlordiazepoxide HCl Allergy Severe Hives Verified 06/21/20 15:53 [From Librium] codeine Allergy Severe Hives Verified 06/21/20 15:53 Penicillins Allergy Severe Hives Verified 06/21/20 15:53 baclofen Allergy Intermediate HIVES Verified 06/21/20 15:53 carbamazepine Allergy Intermediate HIVES Verified 06/21/20 15:53 chlordiazepoxide Allergy Intermediate HIVES Verified 06/21/20 15:53 [From Librium] diazepam [From Valium] Allergy Hives Verified 06/21/20 15:53 Sulfa (Sulfonamide AdvReac Severe Nausea Verified 06/21/20 15:53 Antibiotics) General Stated Complaint: Orthopedic ADIS: 4 Review of Systems Constitutional Constitutional: Reports as per HPI, Denies chills, Denies fever(s), Denies headache(s) and Denies weakness ENT Ears, Nose, Mouth, and Throat: Denies headache(s) Cardiovascular Cardiovascular: Reports as per HPI Respiratory Respiratory: Reports as per HPI and Denies cough Musculoskeletal Musculoskeletal: Reports as per HPI and Denies tingling Integumentary/Breasts Skin/Breast: Reports as per HPI, Denies rash and Denies wounds Neurologic Neurologic: Reports as per HPI, Denies headache(s), Denies tingling, Denies paresthesias and Denies weakness [facility] Medical History Anxiety (Resolved) Cluster headache (Chronic) Depressive disorder (Chronic) Disequilibrium (Acute) Dysuria (Inactive) Elevated blood pressure reading (Suspected) Facial pain (Resolved) Gastritis (Acute) GERD (gastroesophageal reflux disease) (Chronic) Hyperlipidemia (Chronic) Low back pain (Chronic) Memory loss (Resolved) Mitral valve prolapse (Chronic) Osteoarthritis (Chronic) Osteopenia (Acute) Other specified gastritis without mention of hemorrhage (Resolved) Recurrent UTI (Chronic) Soft tissue swelling (Acute) Trigeminal neuralgia (Chronic) UTI (urinary tract infection) (Acute) Vaginal dryness (Acute) Vaginal pain (Acute) Vaginal prolapse (Chronic) White matter disease (Suspected) Surgical History Abdominal hysterectomy (Resolved) Appendectomy (Resolved) Bilateral salpingectomy with oophorectomy (Resolved) Cholecystectomy (Resolved) Colonoscopy - MAC (Resolved 06/21/18) History of cataract surgery (Chronic) History of esophagogastroduodenoscopy (EGD) (Chronic) Open Carpal Tunnel release (Resolved) Family History Daughter Migraine Mother Migraine Other Heart disease Social History Smoking/Tobacco Use Status: Former Tobacco Use Tobacco: How many years used: 45 Alcohol Intake: current Alcohol Intake frequency: a few times a week Alcohol type: beer and hard liquor Drug use: Never Substance use type: does not use Household members: significant other and other Details: [employer] Number of Children: 5 current occupation: Retired What is your relationship status?: Panel score (0-1 are the most socially isolated patients): 1 Seatbelt use: always Do you feel safe at home: Yes Do you feel safe in your relationship?: Yes Additional Social history: 5 pregnancies, 4 living children Female Reproductive History Menstrual Age of Menarche: 19 Menopause type: surgical History History 5 Para Hx # Term Pregnancies 5 Multiple births Hx # Pregnancies Ectopic pregnancies AB induced Hx Number of Living Children AB spontaneous Exam Const General: cooperative, healthy appearing, comfortable, no acute distress, well developed and well groomed Nutritional Appearance: average body habitus and well nourished Orientation: alert and awake Resp Effort & Inspection: normal respiratory effort, able to speak in complete sentences and no respiratory distress Cardio Rate: regular rate Rhythm: regular rhythm Skin General skin exam: no rashes or lesions noted Lesions: no lesions Rashes: no rashes Trauma: no lacerations or abrasions Neuro General: patient alert and patient awake Cognition: normal cognition Speech: speech normal Gait: antalgic Motor: muscle tone normal throughout Sensory Exam: no sensory deficits noted Extrem Right lower extremity: normal to inspection, normal capillary refill, no joint enlargement, knee Details: normal to inspection; no tenderness (no pain over proximal fibula) and no swelling, lower leg Details: normal to inspection and no edema; no tenderness, no localized swelling, no palpable cords, no ecchymosis and no crepitus, ankle Details: normal to inspection, tenderness Location: of the lateral malleolus, of the anterior talofibular ligament and anterolaterally; not of the medial malleolus, not of the achilles tendon, not anteromedially, not posteriorly and not anteriorly, swelling (small amount of lateral swelling) and no edema; ROM abnormal (patient has minimal movement secondary to pain), no unusual warmth, no abrasions, no lacerations, no ecchymosis, no crepitus and achilles tendon exam normal and foot Details: normal capillary refill, tenderness Location: of the lateral foot, toes with normal ROM, no edema and vascular exam Details: dorsalis pedis pulse present, posterior tibial pulse present and normal capillary refill; no unusual warmth, no ecchymosis and no crepitus; ROM limited Psych Appearance: grossly normal and well kempt Mental Status: mental status grossly normal Speech and Movement: speech and movement normal Course Vital Signs Vital signs: Vital Signs Temperature 36.7 C 06/21/20 15:49 Pulse 74 06/21/20 15:49 Blood Pressure 137/67 06/21/20 15:49 Pulse Oximetry 98 06/21/20 15:49 Temperature 36.7 C 06/21/20 15:49 Temperature Source Temporal Artery Scan 06/21/20 15:49 Pulse 74 06/21/20 15:49 Respiratory Effort Non-Labored 08/10/20 15:51 Blood Pressure 137/67 06/21/20 15:49 Pulse Oximetry 98 06/21/20 15:49 Pain Level 8 06/21/20 15:49
--- NOTE | 2020-06-21 16:15 | DI.RAD_ITS ---
EXAM: XR ANKLE RT COMPLETE and XR foot RT complete CLINICAL HISTORY: lateral pain after fall. TECHNIQUE: 2D digital imaging was performed. COMPARISON: CR XR ANKLE RT COMPLETE from 08/19/2019 FINDINGS: BONES: No acute fracture is present. No bony destructive lesion is seen. Small enthesophyte at the A chilles insertion site. JOINTS: The ankle mortise is normally aligned. SOFT TISSUE: Mild soft tissue swelling about the ankle. IMPRESSION: No acute fracture or dislocation. DATA REPOSITORY: RADIATION DOSE DELIVERED:
[2020-06-21] MEDS: Acetaminophen 500 MG TAB 1000 MG PO (16:27)
--- NOTE | 2020-06-21 16:48 | DI.VRAD_ITS ---
PROCEDURE INFORMATION: Exam: XR Right Ankle Exam date and time: 06/21/2020 4:33 PM Age: 70 years old Clinical indication: Ankle; Right; Patient HX: Lateral pain after fall TECHNIQUE: Imaging protocol: XR Right ankle. Views: 3 or more views. COMPARISON: CR XR ANKLE RT COMPLETE 08/19/2019 10:16 AM FINDINGS: Bones/joints: There is no evidence of a fracture or dislocation. There is a small Achilles tendon spur. Soft tissues: There is soft tissue swelling about the ankle. This could represent a soft tissue injury. IMPRESSION: Soft tissue swelling about the ankle could represent a soft tissue injury. Clinical correlation is recommended. Achilles tendon spurs as above. Dictated and Authenticated by: Gurdeep So MD. Ordering:KARISSA Jackson MD
--- NOTE | 2020-06-21 16:52 | DI.VRAD_ITS ---
PROCEDURE INFORMATION: Exam: XR Right Foot Complete Exam date and time: 06/21/2020 4:35 PM Age: 70 years old Clinical indication: Foot; Right; Patient HX: Lateral pain after rotational injury TECHNIQUE: Imaging protocol: XR Right foot. Views: 3 or more views. COMPARISON: CR XR ANKLE RT COMPLETE 08/19/2019 10:16 AM FINDINGS: Bones/joints: There is a small Achilles tendon spur. There is no evidence of a fracture or a dislocation. Soft tissues: Normal. IMPRESSION: No evidence of a fracture or a dislocation. Dictated and Authenticated by: Gurdeep So MD. Ordering:KARISSA Jackson MD
[2020-06-21 17:21] VITALS: BP 161/63; PULSE 73; RESP 16; O2SAT 98
== END 2020-06-21 17:27 | disposition home or self-care (01) ==
PROVIDERS: Emergency Provider Physician Assistant; PCP Nurse Practitioner Family
DX: S93.491A Sprain of other ligament of right ankle, initial encounter (principal); S93.601A Unspecified sprain of right foot, initial encounter; W18.09XA Striking against other object with subsequent fall, initial encounter; X50.9XXA Other and unspecified overexertion or strenuous movements or postures, initial encounter
CPT/HCPCS: 29515; 99284; 73610; 73630; 99283; L4361

== ENCOUNTER 2020-07-29 01:14 | Outpatient (CLI) | payer MEDICARE, SELFPAY ==
--- NOTE | 2020-07-29 | DI.MRI_ITS ---
EXAM: MR LUMBAR SPINE WO CLINICAL HISTORY: LUMBAR SPONDYLOSIS, BACK PAIN,M47.816. TECHNIQUE: Multiplanar multisequence MRI was performed. COMPARISON: MR MR LUMBAR SPINE WO from 10/02/2019 FINDINGS: MR examination of lumbar spine was performed according to the usual protocol. No significant bony si gnal abnormality seen. Incidental note is made bilateral small sacral nerve root cysts. The conus medullaris appears intact. No significant findings from the T10-T11 level through the L1-2 level. At L2-3 there is a mild disc bulge without disc herniation, central canal spinal stenosis, or neural foraminal stenosis. At L3-4, there is a mild disc bulge without evidence focal disc herniation, central canal spinal sten osis, or neural foraminal stenosis. At L4-5 there is prominent disc bulge, mild to moderate facet hypertrophy, there is borderline centra l canal spinal stenosis. No neural foraminal stenosis seen. No focal disc herniation seen. At L5-S1, there is a moderate disc bulge, no focal disc herniation, central canal spinal stenosis, or neural foraminal stenosis. IMPRESSION: Multilevel disc bulges, no focal disc herniation seen, mild central canal spinal stenosis at L 4 5. No gross interval change appearance comparison with prior MR of September 2019. DATA REPOSITORY:
== END 2020-07-29 01:34 ==
PROVIDERS: PCP Nurse Practitioner Family; Visit Provider Neurological Surgery
DX: M47.816 Spondylosis without myelopathy or radiculopathy, lumbar region (principal); M48.061 Spinal stenosis, lumbar region without neurogenic claudication
CPT/HCPCS: 72148

== ENCOUNTER 2020-12-09 16:51 | Outpatient (REF) | payer OTHER, SELFPAY ==
[2020-12-09 19:20] LABS: HCT 41.3 % (36.0-46.0); HGB 13.6 g/dL (11.2-15.7); MCH 27.5 pg (27.0-33.0); MCHC 32.9 % (32.0-36.0); MCV 83.4 fL (80-95); MPV 11.3 fL (8.0-11.0); Platelet Count 192 10^3/uL (130-400); RBC 4.95 10^6/uL (3.93-5.22); RDW 12.8 % (11.7-14.6); RDW-SD 38.6 fL; WBC 6.69 10^3/uL (4.4-10.8)
[2020-12-09 19:22] LABS: C-Reactive Protein 0.54 mg/dL (0.0-0.3)
[2020-12-09 20:08] LABS: ESR 21 mm/hr (0-30)
[2020-12-10 15:16] LABS: Creatine Kinase 83 U/L (26-192)
== END 2020-12-09 17:11 ==
LOC: NCHCN 16:51
PROVIDERS: PCP Nurse Practitioner Family; Visit Provider Nurse Practitioner Family
DX: M47.816 Spondylosis without myelopathy or radiculopathy, lumbar region (principal); M79.18 Myalgia, other site
CPT/HCPCS: 82550; 85027; 85652; 86140

== ENCOUNTER 2021-02-15 12:08 | Outpatient (REF) | payer MEDICARE, SELFPAY ==
[2021-02-15 15:24] LABS: Anion Gap 10.2 mmol/L (3-11); BUN 15 mg/dL (7-18); CO2 27.8 mmol/L (21.0-32.0); CREATININE 0.9 mg/dL (0.55-1.02); Calcium 9.1 mg/dL (8.5-10.1); Chloride 105 mmol/L (98-107); Glucose 104 mg/dL (74-106); HDL Cholesterol 46 mg/dL (40-60); LDL CHOLESTEROL 140 mg/dL (<100); Potassium 4.6 mmol/L (3.5-5.1); Sodium 143 mmol/L (136-145)
[2021-02-15 15:38] LABS: C-Reactive Protein 0.39 mg/dL (0.0-0.3); Creatine Kinase 105 U/L (26-192)
== END 2021-02-15 12:09 | disposition home or self-care (01) ==
LOC: NCHCN 12:08
PROVIDERS: PCP Nurse Practitioner Family; Visit Provider Nurse Practitioner Family
DX: M79.10 Myalgia, unspecified site (principal); E78.5 Hyperlipidemia, unspecified
CPT/HCPCS: 80048; 82550; 83721; 83718; 86140

== ENCOUNTER → 2021-03-22 02:29 | Outpatient (CLI) | payer MEDICARE, SELFPAY ==
--- NOTE | 2021-03-22 | DI.MAMMO_ITS ---
Exam(s) MAMMO SCREENING EXAM: MAMMO SCREENING CLINICAL HISTORY: SCREENING, Z12.39 TECHNIQUE: Mammograms were interpreted according to the usual protocol including computer analysis w [employer] CAD system, tomosynthesis and C-view imaging. COMPARISON: FINDINGS: The breasts are of moderate density with fairly symmetrical distribution of fibroglandular tissue. N o dominant mass or clumped microcalcification is identified in either breast. The current examinatio n is compared with previous examinations including July 2019 and there has been no gross interva l change in appearance in comparison with the prior studies. IMPRESSION: No specific evidence of malignancy at this time. Routine screening examinations are suggested at yea rly intervals in this age group according to the ACS ACR guidelines. BI-RADS Category 1 - Negative Breast Density - Category B - Scattered areas of fibroglandular density
--- NOTE | 2021-03-22 14:46 | DI.RAD_ITS ---
Exam(s) XR HIP RT COMPLETE AP PELVIS EXAM: XR HIP RT COMPLETE AP PELVIS CLINICAL HISTORY: RT HIP PAIN, M25.551 TECHNIQUE: COMPARISON: No exams were available for comparison FINDINGS: Three views were obtained. There is fairly well maintained cartilaginous joint spaces of both hips. Mild hypertrophic marginal osteophyte formation noted involving the acetabula bilaterally. No other significant bony or soft tissue abnormality seen. IMPRESSION: RADIATION DOSE DELIVERED: Total DLP
== END ==
PROVIDERS: PCP Nurse Practitioner Family; Visit Provider Nurse Practitioner Family
DX: M25.551 Pain in right hip (principal); Z12.31 Encounter for screening mammogram for malignant neoplasm of breast
CPT/HCPCS: 77063; 77067; 73502

== ENCOUNTER → 2021-05-06 10:06 | Outpatient (BNVA) | payer MEDICARE, SELFPAY | PROVIDERS: PCP Nurse Practitioner Family; Referring Provider Nurse Practitioner Family; Visit Provider Student in an Organized Health Care Education/Training Program | DX: M16.11 Unilateral primary osteoarthritis, right hip (principal) | CPT/HCPCS: 99213 ==

== ENCOUNTER → 2021-05-26 02:52 | Outpatient (CLI) | payer MEDICARE, SELFPAY ==
--- NOTE | 2021-05-26 09:15 | DI.RAD_ITS ---
Exam(s) RF JOINT INJECTION FLUORO GUID EXAM: RF JOINT INJECTION FLUORO GUID CLINICAL HISTORY: PART HIP PAIN, M25.551, RT HIP INJECTION UNDER FLUORO TECHNIQUE: Fluoroscopy provided. Radiologist not present. CONTRAST MATERIAL: None COMPARISON: No exams were available for comparison FINDINGS: Fluoroscopy was provided for therapeutic right hip injection. Submitted image(s) reveal needle placement at the lateral aspect of the right femoral head. Small am ount of intra-articular contrast is noted. Please refer to the procedure report for complete details. Cumulative Dose: Sanamr=0.15 mGy IMPRESSION: RADIATION DOSE DELIVERED:
--- NOTE | 2021-05-26 14:00 | OPPNE_ITS ---
Procedure Note Date of procedure: 05/26/21 Procedure: Right Hip Injection with Fluoroscopic Guidance Surgeon/Proceduralist/Physician: Tobi Mcneal Procedure Diagnosis: Right Hip Pain Procedure Indications: Lexy has had persistent pain of the RIGHT hip and groin. Noninvasive measures have been tried. To serve as both diagnostic and therapeutic, an injection under fluoroscopy was recommended. I had discussed the risks of the procedure and the patient elected to proceed. Procedure Description: Lexy was greeted in the flouroscopy room. The correct side was identified and the consent was reviewed with the patient and signed. The patient was then placed in the supine position on the fluoroscopy table. The RIGHT hip was then prepped with Chloraprep. The anter olateral injection starting point was identiifed by bony landmarks and fluoroscopy. The skin and soft tissue in the tract of the injection was anesthetized with 1% Lidocaine. A spinal needle was then inserted deep into the hip joint at the level of the lateral femoral neck under fluoroscopic guidance. A small amount of Omnipaque solution was injected to confirm intraarticular placement. Once confirmed, the hip was injected with 6cc of 0.5% Bupivicaine and 80mg of Depo-Medrol. A bandaid was placed on the injection site. The patient tolerated the procedure well.
[2021-05-26] MEDS: Bupivacaine 0.5% Pres-Free 10 ML VIAL 5 ML IJ (14:24)
[2021-05-26] MEDS: Omnipaque 300 MG/ML 10 ML BTL IJ (14:25)
[2021-05-26] MEDS: methylPREDNISolone ACETATE 80 MG/ML VIAL IM (14:26)
== END ==
PROVIDERS: PCP Nurse Practitioner Family; Visit Provider Student in an Organized Health Care Education/Training Program
DX: M25.551 Pain in right hip (principal)
CPT/HCPCS: 20610; 77002; J1040

== ENCOUNTER 2021-07-05 07:50 | Outpatient (CLI) | payer MEDICARE, SELFPAY ==
[2021-07-05 07:59] VITALS: BP 162/60; PULSE 66; RESP 18; TEMP 37; O2SAT 98
--- NOTE | 2021-07-05 08:34 | DI.RAD_ITS ---
Exam(s) XR PAIN CLINIC SACRIOILIAC 2V EXAM: XR PAIN CLINIC SACRIOILIAC 2V CLINICAL HISTORY: Dx: Sacroiliac Joint Dysfunction. TECHNIQUE: Fluoroscopy was provided for the referring physician for guidance with performing SI join t pain clinic injection procedure. COMPARISON: No exams were available for comparison FINDINGS: Please see procedure note for details. Fluoro time 26.1 seconds RADIATION DOSE DELIVERED: Ka,r=5.2 mGy
--- NOTE | 2021-07-05 08:35 | PDOC.PAIN_ITS ---
Pain Clinic Procedure Note Procedure Note Procedure Note: INTRA-ARTICULAR SI JOINT INJECTION Lexy Beauchamp has been referred to the [facility] for intra- articular SI joint injection. Pre-operative diagnosis: sacroiliac joint dysfunction Post-operative diagnosis: same as above Pre-procedure VAS score: 8/10 Post-procedure VAS score: 0/10 COMMENTS: patient has chronic axial back pain with radiation to bilateral buttocks, worse with prolonged sitting. she was evaluated by Ms Cecilia Prasad APRN in clinic and diagnosed with sacroiliac mediated pain. she presents for bilateral SI joint injection for both diagnostic and therapeutic purposes. Patient was interviewed and the medical record reviewed. There were no medical, pharmacologic, radiographic or other structural contraindications to attempting fluoroscopically guided intra-articular SI joint injection. Risks and expected side effects as well as potential benefit of the procedure were reviewed and voiced concerns addressed. The printed consent form was signed and witnessed. Standard time-out procedure was performed. Patient was placed in the prone position on the fluoroscopy table and automated blood pressure cuff and pulse oximeter applied. The skin entry point for approaching bilateral SI joints was identified under the most advantageous fluoroscopic view and marked. Following thorough Chlorhexadine preparation of the skin and draping and 1% lidocaine infiltration of the skin entry point and subcutaneous tissues, a 22 gauge spinal needle was placed under fluoroscopic guidance into bilateral SI joints was identified under the most advantageous fluoroscopic view and marked. Following thorough Chlorhexadine preparation of the skin and draping and 1% lidocaine infiltration of the skin entry point and subcutaneous tissues, a 22 gauge spinal needle was placed under fluoroscopic guidance into bilateral SI joint. Intra-articular placement was confirmed by a clear arthrogram resulting from the injection of 0.25ml Omnipaque 240, 1ml 1% lidocaine, and 40mg Depomedrol were injected intra-articularily mixed with 1cc of 1% lidocaine with an initial reproduction of a significant component of the usual pain. Vital signs were stable throughout the procedure and were as recorded in the docflowsheet by the nursing staff. Follow up plans and appointments were discussed with the patient. Post procedure instruction was given as documented in nursing documentation and having met discharge criteria, and was discharged from the [facility]. COMMENTS: patient tolerated procedure well. Reji Kumar MD Pain Management CC: Nimo Argueta
[2021-07-05] MEDS: Omnipaque 240 MG/ML 50 ML BTL IJ (08:40)
[2021-07-05] MEDS: methylPREDNISolone ACETATE 80 MG/ML VIAL IJ (08:41)
[2021-07-05 08:53] VITALS: BP 146/88; PULSE 69; RESP 17; O2SAT 100
== END 2021-07-05 07:51 | disposition home or self-care (01) ==
LOC: PC 07:51
PROVIDERS: PCP Nurse Practitioner Family; Visit Provider Internal Medicine
DX: M53.3 Sacrococcygeal disorders, not elsewhere classified (principal); M54.5 Low back pain
CPT/HCPCS: 27096; 72200; J1040; Q9967

== ENCOUNTER → 2021-12-14 08:13 | Outpatient (BNVA) | payer MEDICARE, SELFPAY | PROVIDERS: PCP Nurse Practitioner Family; Referring Provider Nurse Practitioner Family; Visit Provider Student in an Organized Health Care Education/Training Program | DX: M16.11 Unilateral primary osteoarthritis, right hip (principal); M25.552 Pain in left hip | CPT/HCPCS: 99213 ==

== ENCOUNTER → 2022-02-09 02:53 | Outpatient (CLI) | payer MEDICARE, SELFPAY ==
--- NOTE | 2022-02-09 08:00 | DI.RAD_ITS ---
Exam(s) RF JOINT INJECTION FLUORO GUID EXAM: RF JOINT INJECTION FLUORO GUID CLINICAL HISTORY: RIGHT HIP PAIN,oa hip, m16.9,fluoro guided injection. TECHNIQUE: 2D and realtime digital imaging was performed. COMPARISON: No exams were available for comparison FINDINGS: Fluoroscopy for was provided for Dr. Mcneal for guidance with performing a right hip injection. Th e hard copy image shows a needle projecting at the lateral aspect of the right femoral head. Please see procedure note for details. Fluoro time 1 second RADIATION DOSE DELIVERED: mega Marion=3.56 mGy
--- NOTE | 2022-02-09 08:00 | DI.RAD_ITS ---
Exam(s) RF JOINT INJECTION FLUORO GUID EXAM: RF JOINT INJECTION FLUORO GUID CLINICAL HISTORY: LEFT HIP PAIN,OA LT HIP, M16.9, FLUORO GUIDED INJECTION. TECHNIQUE: 2D and realtime digital imaging was performed. COMPARISON: No exams were available for comparison FINDINGS: Fluoroscopy was provided for Dr. Mcneal for guidance with performing a left hip injection. A singl e hard copy image shows a needle projecting at the lateral aspect of the left femoral head and inject ion of contrast. Please see procedure note for details. Fluoro time 1 second RADIATION DOSE DELIVERED: mega Marion=13.0 mGy
--- NOTE | 2022-02-09 14:22 | OPPNE_ITS ---
Date of service: 02/09/22 Time of Service: 14:22 Procedure Note Date of procedure: 02/09/22 Procedure: Bilateral Hip Injection with Fluoroscopic Guidance Surgeon/Proceduralist/Physician: Tobi Mcneal Procedure Diagnosis: Bilateral Hip Pain Procedure Indications: Lexy has had persistent pain of the BILATERAL hip and groin. Noninvasive measures have been tried. She had a previously successful injection on the right side. To serve as both diagnostic and therapeutic, an injection under fluoroscopy was recommended. I had discussed the risks of the procedure and the patient elected to proceed. Procedure Description: Lexy was greeted in the flouroscopy room. The consent was reviewed with the patient and signed. The patient was then placed in the supine position on the fluoroscopy table. The RIGHT hip was then prepped with Chloraprep. The anterolateral injection starting point was identiifed by bony landmarks and fluoroscopy. The skin and soft tissue in the tract of the injection was anesthetized with 1% Lidocaine. A spinal needle was then inserted deep into the hip joint at the level of the lateral femoral neck under fluoroscopic guidance. A small amount of Omnipaque solution was injected to confirm intraarticular placement. Once confirmed, the hip was injected with 5cc of 0.5% Bupivicaine an d 80mg of Depo-Medrol. A bandaid was placed on the injection site. The LEFT hip was then prepped with Chloraprep. The anterolateral injection starting point was identiifed by bony landmarks and fluoroscopy. The skin and soft tissue in the tract of the injection was anesthetized with 1% Lidocaine. A spinal needle was then inserted deep into the hip joint at the level of the lateral femoral neck under fluoroscopic guidance. A small amount of Omnipaque solution was injected to confirm intraarticular placement. Once confirmed, the hip was injected with 5cc of 0.5% Bupivicaine and 80mg of Depo-Medrol. A bandaid was placed on the injection site. The patient tolerated the procedure well.
[2022-02-09] MEDS: Omnipaque 300 MG/ML 10 ML BTL IJ ×2 (14:25→14:27)
[2022-02-09] MEDS: methylPREDNISolone ACETATE 80 MG/ML VIAL IM ×2 (14:26→14:28)
[2022-02-09] MEDS: Bupivacaine 0.5% Pres-Free 30 ML VIAL IJ ×2 (14:26→14:27)
== END ==
PROVIDERS: PCP Nurse Practitioner Family; Visit Provider Student in an Organized Health Care Education/Training Program
DX: M25.551 Pain in right hip; M25.552 Pain in left hip
CPT/HCPCS: 20610; 77002; J1040

== ENCOUNTER 2022-02-20 18:09 | Outpatient (REF) | payer MEDICARE, SELFPAY ==
[2022-02-20 14:42] LABS: Anion Gap 5.8 mmol/L (3-11); BUN 27 mg/dL (7-18); CO2 30.2 mmol/L (21.0-32.0); CREATININE 0.8 mg/dL (0.55-1.02); Calcium 9.3 mg/dL (8.5-10.1); Calculated LDL 228 mg/dL (<100); Chloride 103 mmol/L (98-107); Cholesterol 327 mg/dL (<200); Glucose 109 mg/dL (74-106); HDL Cholesterol 53 mg/dL (40-60); Potassium 5.2 mmol/L (3.5-5.1); Sodium 139 mmol/L (136-145); Triglyceride 230 mg/dL (<150)
== END 2022-02-20 18:10 | disposition home or self-care (01) ==
LOC: NCHCN 18:09
PROVIDERS: PCP Nurse Practitioner Family; Visit Provider Nurse Practitioner Family
DX: E78.5 Hyperlipidemia, unspecified (principal); R73.9 Hyperglycemia, unspecified; Z79.899 Other long term (current) drug therapy
CPT/HCPCS: 80048; 80061

== ENCOUNTER 2022-04-25 11:22 | Outpatient (REF) | payer MEDICARE, SELFPAY ==
[2022-04-25 15:37] LABS: ALT 28 U/L (14-59); AST 21 U/L (15-37); HDL Cholesterol 53 mg/dL (40-60); LDL CHOLESTEROL 139 mg/dL (<100)
[2022-04-25 16:02] LABS: Creatine Kinase 107 U/L (26-192)
== END 2022-04-25 11:23 | disposition home or self-care (01) ==
LOC: NCHCN 11:22
PROVIDERS: PCP Nurse Practitioner Family; Visit Provider Nurse Practitioner Family
DX: E78.5 Hyperlipidemia, unspecified (principal)
CPT/HCPCS: 82550; 83721; 83718; 84450; 84460

== ENCOUNTER 2022-08-22 15:32 | Outpatient (REF) | payer MEDICARE, SELFPAY ==
[2022-08-25 11:54] LABS: O-desmethyltramadol 13313 ng/mL (Cutoff:25); Tramadol 15328 ng/mL (Cutoff:25)
== END 2022-08-22 15:33 | disposition home or self-care (01) ==
LOC: NCHCN 15:32
PROVIDERS: PCP Nurse Practitioner Family; Visit Provider Nurse Practitioner Family
DX: M54.16 Radiculopathy, lumbar region (principal)
CPT/HCPCS: 80373

== ENCOUNTER 2023-04-02 11:17 | Outpatient (CLI) | payer MEDICARE, SELFPAY ==
[2023-04-02 11:09] LABS: Abs Immature Grans 0.02 10^3/uL (0.0-0.06); Absolute Basophil Count 0.05 10^3/uL (0.0-0.2); Absolute Lymphocyte Count 1.48 10^3/uL (1.2-3.4); Absolute Monocyte Count 0.39 10^3/uL (0.1-0.8); Absolute Neutrophil Count 2.79 10^3/uL (1.2-6.7); Eosinophils % 4.1; HGB 13.4 g/dL (11.2-15.7); Immature Grans % 0.4; MCH 27.5 pg (27.0-33.0); MCHC 32.7 % (32.0-36.0); MCV 84 fL (80-95); MPV 10.7 fL (8.0-11.0); Monocytes % 7.9; Neutrophils % 56.6; Platelet Count 167 10^3/uL (130-400); RBC 4.88 10^6/uL (3.93-5.22); RDW-SD 39.8 fL; WBC 4.93 10^3/uL (4.4-10.8)
[2023-04-02 11:22] LABS: INR 0.9 (0.9-1.1); Prothrombin Time 9.4 sec (9.3-11.0)
[2023-04-02 12:08] LABS: Anion Gap 3.7 mmol/L (3-11); BUN 12 mg/dL (7-18); CO2 29.3 mmol/L (21.0-32.0); CREATININE 0.9 mg/dL (0.55-1.02); Calcium 9.2 mg/dL (8.5-10.1); Calculated LDL 180 mg/dL (<100); Chloride 104 mmol/L (98-107); Cholesterol 263 mg/dL (<200); Estimated GFR 68.77 (mL/min/1.73m2); Glucose 91 mg/dL (74-106); HDL Cholesterol 49 mg/dL (40-60); Potassium 4.4 mmol/L (3.5-5.1); Sodium 137 mmol/L (136-145); Triglyceride 170 mg/dL (<150)
== END 2023-04-02 11:18 | disposition home or self-care (01) ==
LOC: LBO 11:26
PROVIDERS: PCP Nurse Practitioner Family; Visit Provider Neurological Surgery
DX: M51.16 Intervertebral disc disorders with radiculopathy, lumbar region (principal); R73.9 Hyperglycemia, unspecified
CPT/HCPCS: 36415; 80048; 80061; 85025; 85610; 85730

== ENCOUNTER 2023-12-03 15:44 | Outpatient (CLI) | payer MEDICARE, SELFPAY ==
--- NOTE | 2023-12-03 10:30 | DI.RAD_ITS ---
Exam(s) XR HIP RT COMPLETE AP PELVIS EXAM: XR HIP RT COMPLETE AP PELVIS CLINICAL HISTORY: RIGHT HIP PAIN. TECHNIQUE: 2D digital imaging was performed of the right hip. Two images were obtained. AP pelvis a nd lateral right hip views were obtained. COMPARISON: CR XR HIP RT COMPLETE AP PELVIS from 03/22/2021 FINDINGS: BONES: No acute fracture is present. No bony destructive lesion is seen. JOINTS: No dislocation present. There are mild degenerative changes of the hips, left greater than ri ght. SOFT TISSUE: Normal. IMPRESSION: Mild degenerative changes of the hips, left greater than right. DATA REPOSITORY: RADIATION DOSE DELIVERED:
== END 2023-12-03 15:45 | disposition home or self-care (01) ==
LOC: DIORS 15:44
PROVIDERS: PCP Nurse Practitioner Family; Referring Provider Nurse Practitioner Family; Visit Provider Student in an Organized Health Care Education/Training Program
DX: M16.11 Unilateral primary osteoarthritis, right hip
CPT/HCPCS: 99213; 73502

== ENCOUNTER 2023-12-24 04:42 | Outpatient (CLI) | payer MEDICARE, SELFPAY ==
[2023-12-24 15:42] LABS: HCT 41.9 % (36.0-46.0); HGB 13.7 g/dL (11.2-15.7); MCH 27.2 pg (27.0-33.0); MCHC 32.7 % (32.0-36.0); MCV 83 fL (80-95); MPV 10.1 fL (8.0-11.0); Platelet Count 164 10^3/uL (130-400); RBC 5.03 10^6/uL (3.93-5.22); RDW 13.1 % (11.7-14.6); RDW-SD 39.5 fL; WBC 5.86 10^3/uL (4.4-10.8)
[2023-12-24 16:58] LABS: Anion Gap 9.5 mmol/L (3-11); BUN 19 mg/dL (7-18); CO2 27.5 mmol/L (21.0-32.0); CREATININE 0.7 mg/dL (0.55-1.02); Calcium 9.7 mg/dL (8.5-10.1); Chloride 107 mmol/L (98-107); Estimated GFR 92.41 (mL/min/1.73m2); Glucose 126 mg/dL (74-106); Potassium 4.1 mmol/L (3.5-5.1); Sodium 144 mmol/L (136-145)
== END 2023-12-24 04:43 | disposition home or self-care (01) ==
LOC: LBO 04:42
PROVIDERS: PCP Nurse Practitioner Family; Visit Provider Student in an Organized Health Care Education/Training Program
DX: M25.551 Pain in right hip (principal); M16.11 Unilateral primary osteoarthritis, right hip; Z01.818 Encounter for other preprocedural examination; Z01.812 Encounter for preprocedural laboratory examination
CPT/HCPCS: 36415; 80048; 85027

== ENCOUNTER 2024-01-08 06:04 | Day surgery (SDC) | payer MEDICARE, SELFPAY ==
[2024-01-08] VITALS (9 sets, daily range): BP systolic 99–143; BP diastolic 35–60; PULSE 65–75; RESP 14–16; TEMP 36–36.6; O2SAT 94–98; BMI 29.1
[2024-01-08] MEDS: Acetaminophen 500 MG TAB 1000 MG PO (06:32)
--- NOTE | 2024-01-08 06:38 | W.ANESPRE ---
General Info Date of Service Date Performed: 01/08/24 Height: 5 ft 4 in Weight: 77.1 kg Body Mass Index (BMI): 29.1 Surgical Procedure: Operation Date: 01/08/24 07:50 Proposed Procedure Side Surgeon p Hip Total Hip Anterior Right Tobi Mcneal MD Meds Allergies and Home Medications Allergies Allergy/AdvReac Type Severity Reaction Status Date / Time chlordiazepoxide HCl Allergy Severe Hives Verified 01/08/24 06:28 [From Librium] codeine Allergy Severe Hives Verified 01/08/24 06:28 Penicillins Allergy Severe Hives Verified 01/08/24 06:28 baclofen Allergy Intermediate HIVES Verified 01/08/24 06:28 carbamazepine Allergy Intermediate HIVES Verified 01/08/24 06:28 chlordiazepoxide Allergy Intermediate HIVES Verified 01/08/24 06:28 [From Librium] diazepam [From Valium] Allergy Hives Verified 01/08/24 06:28 Sulfa (Sulfonamide AdvReac Severe Nausea Verified 01/08/24 06:28 Antibiotics) Home Medication Medication Instructions Recorded estradiol 10 mcg vaginal tablet 10 mcg vaginal DAILY 02/21/19 (Vagifem) pantoprazole 40 mg tablet,delayed 40 mg PO DAILY 01/15/23 release antiarthritic combination no.2 900 900 mg PO DAILY PRN 12/03/23 mg tablet (glucosamine-chondroitin) gabapentin 300 mg capsule 300 mg PO TID 12/03/23 omega 2-qgl-wwx-fish oil 100 1 cap PO DAILY 12/03/23 mg-160 mg-1,000 mg capsule (Fish Oil) acetaminophen 500 mg tablet 1,000 mg (2 x 500 mg) PO TID #90 01/08/24 tabs aspirin 81 mg tablet,delayed 81 mg PO BID #60 tabs 01/08/24 release celecoxib 200 mg capsule 200 mg PO BID #60 caps 01/08/24 dexamethasone 4 mg tablet 4 mg PO DAILY #2 tabs 01/08/24 oxycodone 5 mg tablet 5 mg PO Q4H PRN pain #20 tabs 01/08/24 Current Visit Medications: Current Medications Generic Name Dose Route Start Last Admin Trade Name Freq PRN Reason Stop Dose Admin Acetaminophen 1,000 mg 01/08/24 06:00 01/08/24 06:32 Acetaminophen 500 Mg Tab PO 01/08/24 16:00 1,000 mg PREOP LUCERO Administration Celecoxib 400 mg 01/08/24 06:00 Celecoxib 200 Mg Cap PO 01/08/24 16:00 PREOP LUCERO Tranexamic Acid 1,000 mg/ 60 mls @ 360 mls/hr 01/08/24 06:00 Sodium Chloride IV 01/08/24 16:00 PREOP LUCERO Ringer's Solution 1,000 mls @ 80 mls/hr 01/08/24 06:00 IV 01/08/24 23:59 INFUSION LUCERO Cefazolin Sodium/Dextrose 2 gm in 50 mls @ 100 mls/hr 01/08/24 06:00 Ancef Duplex IVPB 01/08/24 23:59 PREOP LUCERO IV Miscellaneous Supplies 1 each 01/08/24 06:00 Iv Access IV 01/08/24 23:59 DIRECTED LUCERO Sodium Chloride 0 ml 01/08/24 06:00 Normal Saline Flush 10 Ml Syr IV 01/08/24 23:59 PRN PRN Sodium Chloride 0 ml 01/08/24 06:00 Normal Saline 10 Ml Vial IJ 01/08/24 23:59 DIRECTED PRN Sterile Water 0 ml 01/08/24 06:00 Water,Injection,Sterile 10 Ml Vial IJ 01/08/24 23:59 DIRECTED PRN PFSH Active Problems Active Problems: Problem Status Onset Code Left hip pain M25.552 Osteoarthrosis, hip M16.9 Primary osteoarthritis of right hip M16.11 Mild chronic gastritis K29.50 Bloating R14.0 Abdominal pain R10.9 Vaginal dryness, menopausal N95.1 Vaginal prolapse Mitral valve prolapse Depressive disorder GERD (gastroesophageal reflux disease) Trigeminal neuralgia Osteoarthritis Recurrent UTI Hyperlipidemia Facial pain Cluster headache Anxiety Low back pain Medical History Medical History (Updated 01/08/24 @ 07:17 by SAMEERA Garcia) Dyslipidemia Peroneal tendinitis, right leg Lumbar spondylosis Blood glucose elevated Myalgia Rectal incontinence Right hip pain Gastritis UTI (urinary tract infection) Osteopenia Vaginal pain Vaginal dryness Soft tissue swelling Disequilibrium Memory loss Other specified gastritis without mention of hemorrhage Surgical History Surgical History History of carpal tunnel release Lumbosacral radicul[place] [facility] [place] H/O: hysterectomy History of esophagogastroduodenoscopy (EGD) History of cataract surgery Open Carpal Tunnel release Abdominal hysterectomy Colonoscopy - MAC (06/21/18) Cholecystectomy Bilateral salpingectomy with oophorectomy Appendectomy Tobacco Smoking/Tobacco Use Status: Former Tobacco Use Alcohol Alcohol Intake: current Alcohol intake frequency: a few times a week Alcohol type: beer and hard liquor Substance Use Substance use: Never Substance use type: does not use Details: 01/07/24: drank one blue [place] Iced tea Prental History History 5 Para Hx # Term Pregnancies 5 Multiple births Hx # Pregnancies Ectopic pregnancies AB induced Hx Number of Living Children AB spontaneous Vital Signs and Lab Results Vital Signs Most Recent Vital Signs in EMR: Most Recent Vital Signs Temp Pulse Resp BP Pulse Ox 36 C L 75 14 143/60 H 96 01/08/24 06:20 01/08/24 06:20 01/08/24 06:20 01/08/24 06:20 01/08/24 06:20 Lab Results Blood Type / Crossmatch: No Data to Display Complete Blood Count: White Blood Count 5.86 10^3/uL (4.4-10.8) 12/24/23 15:30 Red Blood Count 5.03 10^6/uL (3.93-5.22) 12/24/23 15:30 Hemoglobin 13.7 g/dL (11.2-15.7) 12/24/23 15:30 Hematocrit 41.9 % (36.0-46.0) 12/24/23 15:30 Platelet Count 164 10^3/uL (130-400) 12/24/23 15:30 Complete Metabolic Panel: Sodium 144 mmol/L (136-145) 12/24/23 15:30 Potassium 4.1 mmol/L (3.5-5.1) 12/24/23 15:30 Chloride 107 mmol/L (98-107) 12/24/23 15:30 Carbon Dioxide 27.5 mmol/L (21.0-32.0) 12/24/23 15:30 BUN 19 mg/dL (7-18) H 12/24/23 15:30 Creatinine 0.7 mg/dL (0.55-1.02) 12/24/23 15:30 Est GFR (CKD-EPI 2020) 92.41 (mL/min/1.73m2) 12/24/23 15:30 Calcium 9.7 mg/dL (8.5-10.1) 12/24/23 15:30 Glucose 126 mg/dL (74-106) H 12/24/23 15:30 Liver Function Panel: No Data to Display Coagulation Panel: No Data to Display Cardiac Panel: No Data to Display Arterial Blood Gas: No Data to Display Venous Blood Gas: No Data to Display Pancreas Panel: No Data to Display Thyroid Panel: No Data to Display Infectious Disease: No Data to Display Blood Cultures: No Data to Display Toxicology Panel: No Data to Display Imaging and Studies Imaging and Studies Study information below may be from another EMR and interpreted by another provider. Please see original notes in EMR for more complete details. Echocardiogram Summary: Patient Name: JEN MA Unit #: [id number] Loc: DI Ordering Provider: Nimo Argueta Status: REG [facility] Primary Care Provider: Nimo Argueta Date of Exam: 05/09/18 Sex: F : 1950 Age: 67 Exam(s) [id number] US:Echocardiogram Heart *[facility]* *[facility]* [address] [place] [address] Date of study: 05/09/2018 Transthoracic Echocardiography M-mode, complete 2D, complete spectral Doppler, and color Doppler *STUDY CONCLUSIONS* Summary: 1. Left ventricle: The cavity size was normal. Systolic function was normal. The estimated ejection fraction was 60-65%. Diastolic parameters were normal for age. There was no evidence of elevated ventricular filling pressure by Doppler parameters. 2. Mitral valve: No echocardiographic evidence for prolapse. There was mild regurgitation. 3. Right ventricle: The cavity size was normal. Wall thickness was normal. Systolic function was normal. 4. Atrial septum: No defect or patent foramen ovale was identified. 5. Pulmonary arteries: Pulmonary systolic pressure was in the range of 20mm Hg to 30mm Hg. 6. Inferior vena cava: The vessel was patent and normal in size. The respirophasic diameter changes were in the normal range (greater than or equal to 50%), consistent with normal central venous pressure. *PATIENT PRESENTATION* Height: 162.6cm ((64in) ) S/D Pressure: 131 / 67 Weight: 73.5kg ((161.7lb) ) BSA: 1.84m^2 Test start time: 12:45 PM. Test stop time: 01:45 PM. PERFORMING Unknown PERFORMING [facility] ORDERING Nimo Argueta REFERRING Nimo Argueta TECHNICAL TRAINING MANAGER RT Beatriz (Maye)(CT), [facility] *PROCEDURE DATA* Procedure information: The patient was identified by two identifiers. This study was interpreted by [facility]. Pertinent images and digital data are archived for permanent storage and are available for subsequent review. No prior study was available for comparison. Study status: Routine. Transthoracic echocardiography. M-mode, complete 2D, complete spectral Doppler, and color Doppler. A Transthoracic Echocardiogram was performed. Scanning was performed from the parasternal, apical, subcostal, and suprasternal notch acoustic windows. Images were obtained using an [id number] cardiac ultrasound machine. Image quality was adequate. Study completion: The patient tolerated the procedure well. History: PMH: Mitral valve prolapse. *CARDIAC ANATOMY* Left ventricle: The cavity size was normal. Systolic function was normal. The estimated ejection fraction was 60-65%. The tissue Doppler parameters were abnormal. Diastolic parameters were normal for age. There was no evidence of elevated ventricular filling pressure by Doppler parameters. Aortic valve: Trileaflet. Doppler: There was no stenosis. There was no regurgitation. VTI ratio of LVOT to aortic valve: 0.86. Valve area (VTI): 2.5cm^2. Indexed valve area (VTI): 1.4cm^2/m^2. Peak velocity ratio of LVOT to aortic valve: 0.78. Valve area (Vmax): 2.3cm^2. Indexed valve area (Vmax): 1.2cm^2/m^2. Mean velocity ratio of LVOT to aortic valve: 0.84. Valve area (Vmean): 2.5cm^2. Indexed valve area (Vmean): 1.3cm^2/m^2. Mean gradient (S): 5.6mm Hg. Peak gradient (S): 12.9mm Hg. Aorta: Aortic root: The aortic root was normal in size. Ascending aorta: The ascending aorta was normal in size. Mitral valve: No echocardiographic evidence for prolapse. Doppler: There was no evidence for stenosis. There was mild regurgitation. Valve area by pressure half-time: 3.9cm^2. Indexed valve area by pressure half-time: 2.1cm^2/m^2. Peak gradient (D): 3mm Hg. Left atrium: The atrium was normal in size. Atrial septum: No defect or patent foramen ovale was identified. Right ventricle: The cavity size was normal. Wall thickness was normal. Systolic function was normal. Pulmonic valve: Doppler: There was no evidence for stenosis. There was trivial regurgitation. Peak gradient (S): 2.4mm Hg. Tricuspid valve: Doppler: There was mild regurgitation. Pulmonary artery: Poorly visualized. Pulmonary systolic pressure was in the range of 20mm Hg to 30mm Hg. Right atrium: The atrium was normal in size. Pericardium: There was no pericardial effusion. Systemic veins: Inferior vena cava: Well visualized. The vessel was patent and normal in size. The respirophasic diameter changes were in the normal range (greater than or equal to 50%), consistent with normal central venous pressure. Baseline ECG: Normal sinus rhythm. Measurements Left ventricle Value Reference LV ID, ED, PLAX 4.4 cm 3.5 - 6.0 LV ID, ES, PLAX 3.1 cm 2.1 - 4.0 LV PW thickness, ED, PLAX 1.1 cm LV end-diastolic volume, 1-p A2C 32 ml LV ejection fraction, 1-p A2C 63 % LV end-diastolic volume, 1-p A4C 37 ml LV ejection fraction, 1-p A4C 59 % LV e', lateral 0.087 m/sec LV E/e', lateral 10 LV e', medial 0.064 m/sec LV E/e', medial 14 LV e', average 0.075 m/sec LV E/e', average 11 Ventricular septum Value Reference IVS thickness, ED, PLAX 1.0 cm LVOT Value Reference LVOT ID, A-P 1.9 cm LVOT area 2.9 cm^2 LVOT peak velocity, S 1.41 m/sec LVOT mean velocity, S 0.94 m/sec LVOT VTI, S 29.7 cm LVOT peak gradient, S 7.9 mm Hg LVOT mean gradient, S 4.1 mm Hg Stroke volume (SV), LVOT DP 87 ml Stroke index (SV/bsa), LVOT DP 47 ml/m^2 Aortic valve Value Reference Aortic valve peak velocity, S 1.8 m/sec Aortic valve mean velocity, S 1.12 m/sec Aortic valve VTI, S 34.7 cm Aortic mean gradient, S 5.6 mm Hg Aortic peak gradient, S 12.9 mm Hg VTI ratio, LVOT/AV 0.86 Aortic valve area, VTI 2.5 cm^2 Velocity ratio, peak, LVOT/AV 0.78 Aortic valve area, peak velocity 2.3 cm^2 Velocity ratio, mean, LVOT/AV 0.84 Aortic valve area, mean velocity 2.5 cm^2 Aortic valve area/bsa, mean velocity 1.3 cm^2/m^2 Aorta Value Reference Aortic root ID, ED 3.0 cm Ascending aorta ID, A-P, S 3.1 cm RVOT Value Other Study Summary:: L spine MRI reviewed and results in chart Anesthesia Assessment and Plan Anesthesia History Personal History: No History of Anesthesia Complications Family History: No Family History of Anesthesia Complications Exercise Tolerance Exercise Tolerance: Metabolic Equivalents>4 Pertinent Negatives Pertinent Negatives: No Symptoms of GERD, No Major Cardiovascular Symptoms or Complaints, No Major Pulmonary Symptoms or Complaints and No History of CVA/TIA Cardiac & Pulmonary Exam Cardiac Exam: Normal S1/S2 Heart Sounds Pulmonary Exam: Clear Bilateral Breath Sounds Implantable Cardiac Device Does patient have a Pacemaker or an ICD?: No Airway Exam Known Difficult Airway: No Mallampati Class: 2 Mouth Opening: Normal (> 3cm) Thyromental Distance: Less than 3 cm Neck Range of Motion: Full ROM Neck Circumference: Normal Teeth Condition: Normal Dentition ASA Classification ASA Score: ASA 2 Emergency Case?: No NPO Status NPO Status: NPO Clears >2 hours, Solids >8 hours Anesthesia Plan Resuscitation Status: Full Code Anesthesia Technique: Spinal Anesthesia Airway Planned: Natural Airway Monitors Used: Standard Monitors
[2024-01-08] MEDS: Lactated Ringers 1,000 ML 80 ML IV (06:47)
[2024-01-08] MEDS: Celecoxib 200 MG CAP 400 MG PO (07:14)
--- NOTE | 2024-01-08 07:16 | PDOC.DSDIS_ITS ---
Date of service: 01/08/24 Time of Service: 07:16 Discharge Plan Disposition Patient Disposition: Home Condition: Good Discharge Details Reason For Visit: R THR Attending Provider: Tobi Mcneal Primary Care Provider: Nimo Argueta Home Meds and New Rx's Prescriptions: New acetaminophen 500 mg tablet 1,000 mg PO TID Qty: 90 3RF aspirin 81 mg tablet,delayed release (DR/EC) 81 mg PO BID Qty: 60 0RF celecoxib 200 mg capsule 200 mg PO BID Qty: 60 0RF dexamethasone 4 mg tablet 4 mg PO DAILY Qty: 2 0RF oxycodone 5 mg tablet 5 mg PO Q6H PRN (Reason: pain) Qty: 12 0RF Continued gabapentin 300 mg capsule 300 mg PO TID Rx Instructions: 3 TIMES QAM, 1 TAB AT NOON, 3 AT HS Fish Oil 100-160-1,000 mg capsule 1 cap PO DAILY glucosamine-chondroitin 900 mg tablet 900 mg PO DAILY PRN pantoprazole 40 mg tablet,delayed release (DR/EC) 40 mg PO DAILY estradiol [Vagifem] 10 mcg Tablet 10 mcg VAGINAL DAILY Discontinued ibuprofen 200 mg tablet 600 mg PO BID PRN Discharge Instructions Additional Instructions: Total Hip Discharge Instructions Activity: The most important activity is to walk. You should try to take short walks a few times a day. You have no restrictions on movement or positioning, but do not try to force what you do. You will find some stiffness and weakness with hip flexion (lifting your knee). Do not try to strengthen this too early, continue to practice walking and stairs and this will come. - Outpatient physical therapy can be helpful to help return you to a normal gait and improve your flexibility and strength. This can start around 2 weeks. For some patients, it?s not necessary. Usually this is determined at the time of discharge or at the first post-operative visit. - You should wear the DONAVON hose on both legs for 2 weeks. Dressing: Keep the surgical dressing in place for at least one week. After the first week it may be removed and replace with light gauze and tape or nothing. It may get wet after 3 days but avoid soaking the dressing. If it gets wet, just lightly pat dry. It is important to always keep some gauze between skin folds, especially when you are sitting. Spend some time with the wound exposed when you are lying flat as the incision does wrinkle onto itself. Medications: - You should take Tylenol and an anti-inflammatory Celebrex as your primary pain control medications. If the Celebrex is too expensive or not covered, please call the office for another alternative (Advil/Ibuprofen or Naproxen/Aleve). - You have been prescribed a stronger pain medication Oxycodone for breakthrough pain, take as needed as prescribed. - You will continue your stomach acid reduction agent Pantoprozole to help reduce stomach acid and reflux. - You have also been prescribed Decadron to help with post-operative nausea and pain. You will take this for two days starting tomorrow. - You will be taking Aspirin 81mg twice a day for DVT prevention unless instructed otherwise. - If you have constipation you should take Colace or Miralax (both [id number]). It takes most people 3-4 days to have a bowel movement. Follow-up: 2 weeks If you have any acute concerns or questions, please do not hesitate to contact the office at [phone]. You may contact Dr. Mcneal with any questions after hours through the hospital at [phone] or on his cell phone at [phone]. Stand Alone Forms: Anesthesia Discharge Inst., Song Alaniz (DSU) Referrals: Tobi Mcneal MD [ [facility] STAFF PHYSICIAN] - 01/21/24 10:45 am Equipment/Supplies: Walker Activity:: Activity as Tolerated Shower/Bathe:: 72 hours Diet:: As Tolerated Discharge Orders Discharge Orders: Discharge Order (Routine); Ordered 01/08/24 Ordered By: Tobi Mcneal DS: Diagnosis Discharge Diagnosis (1) Primary osteoarthritis of right hip: Status: Chronic
[2024-01-08] MEDS: ceFAZolin 2 GM/50 ML BAG IVPB (07:55)
--- NOTE | 2024-01-08 08:54 | DI.RAD_ITS ---
Exam(s) XR HIP RT IN OR EXAM: XR HIP RT IN OR CLINICAL HISTORY: Primary osteoarthritis of right hip TECHNIQUE: 2D and realtime digital imaging was performed. CONTRAST MATERIAL: Refer to procedure report. COMPARISON: CR XR HIP RT COMPLETE AP PELVIS from 12/03/2023 FINDINGS: Fluoroscopy was provided for Dr. Mcneal during the performance of a right total hip replacement. Please refer to the procedure report for complete details. Ka,r=3.77 mGy IMPRESSION: RADIATION DOSE DELIVERED: 0.0 1658.3 0
--- NOTE | 2024-01-08 10:13 | ROE_ITS ---
Date of service: 01/08/24 Time of Service: 08:00 Operative Note Operative Note DATE OF PROCEDURE: 01/08/24 PRE-OP DIAGNOSIS: Right Hip Osteoarthritis POST-OP DIAGNOSIS: same PROCEDURE: Right Anterior Total Hip Arthroplasty with Intraoperative Navigation SURGEON: Tobi Mcneal RADIO AERIAL INSTALLER: Perico Wright ANESTHESIA TYPE: Spinal Refer to Anesthesia Record ESTIMATED BLOOD LOSS: 150 PATHOLOGY: none sent TOURNIQUET TIME: 0 COMPLICATIONS: None Patient was transported to: PACU Patient's condition: stable Implants: 1. Depuy Comer Acetabular Component, 50mm 2. Depuy Acetabular Liner, 37t76kd 3. Depuy Actis Standard Collared Femoral Stem, Size 3 4. Depuy Altrx Ceramic Femoral Head, Size 32+5mm Indications: I have seen Lexy in clinic for symptoms of hip arthritis, confirmed with radiographic findings. She has exhausted nonoperative methods and was having significant limitations in daily function and desired better function and less pain. I discussed the technical details of a hip replacement. I explained the risks of the procedure to include, but not limited to, bleeding, infection, pain, stiffness, fracture, damage to nerves and vessels, damage to muscles and tendons, loosening, instability, leg length inequality, need for repeat procedure, blood clot and cardiopulmonary demise. Despite these risks, Lexy elected to proceed. Findings: There was focal chondromalacia of the superior femoral head as well as the superior acetabulum. Procedure Description: Lexy was greeted in the preoperative holding area where the correct side was identified and marked. The consent was reviewed with the patient and signed. The history and physical was updated. All questions were answered. She was taken back to the operating room. The feet were wrapped with cast padding and Coban and then placed into the boot liners and then into the boots. Care was taken to protect the skin and make sure the heels were fully down and the boots were stable. The patient was then positioned onto the HANA table. Both legs were held in a neutral position. SCDs were applied. The patient was then slid down onto a peroneal post. Prophylactic antibiotics in the form of Cefazolin were administered. 1g of Tranxemic Acid was given intravenously within 30 minutes of incision. The right leg was then prepped with Chloraprep and draped in a standard fashion. A second prep with Chloraprep was performed prior to placement of a shower-curtain type drape with Iodine impregnated skin protection. A timeout to confirm correct identity, side and site, procedure, allergies, anesthesia, and medical concerns was performed. An obliquely oriented incision was made starting lateral to the ASIS and running distal over the Tensor Fascia Alicia (TFL) muscle belly toward the fibular head, approximately 10cm. The skin and soft tissue was dissected sharply, through Chapincito?s fascia, and to the fascia of the TFL. With the fascia and superior bor kali of the IT band identified, the fascia was incised with a new knife just above any perforators from the IT band. The TFL muscle belly was bluntly dissected away from the fascia and moved laterally. The fat between TFL and rectus was identified to ensure the dissection was not within the TFL. Blunt dissection created space between abductors and the capsule and retractor was placed over the lateral femoral neck. The fibers of the rectus femoris tendon were identified and these were freed from the anterior capsule. A second cobra retractor was placed around the medial femoral neck. The TFL was further retracted laterally to show the deep fascia. Careful dissection through this layer identified three main crossing vessels of the lateral femoral circumflex. These were cauterized in multiple locations and then cut without any noticeable bleeding. The TFL was further released bluntly from the deep fascia to expose anterior hip capsule and fat The Damian orthopaedic retractor was then placed beneath the TFL and against sartorius and medial soft tissues to protect and retract the soft tissues. A T-capsulotomy was then performed starting at the superior lateral acetabulum and moving distally to the intertrochanteric ridge. These capsular flaps were tagged with a No. 1 Ethibond and elevated from within. The capsular flaps were released to the shoulder of the lateral neck and to the lesser trochanter to give excellent visualization of the proximal femur. A neck osteotomy was performed using an oscillating saw based on preoperative templates. This cut started in the shoulder and of the lateral neck and exited medially. The saw was at all times directed medially to avoid injury to the greater trochanter. Gross traction was applied to the leg and the osteotomy op ened. The femoral head was removed with a corkscrew, making sure to protect the TFL on its exit. Traction was released after head removal. This was measured on the back table to determine the starting reamer size. Portions of the rectus obscuring visualization were minimally elevated off the superior acetabulum. An anterior retractor was placed over the anterior wall between capsule and labrum and attached to the Gripper retraction system. The femur was rotated to 90 degrees and medial capsule was fully released until the lesser trochanter was palpable and visible; the femur was returned to 30 degrees. A posterior retractor was placed similarly between capsule and labrum. This provided excellent visualization. The contents of the cotyloid fossa were removed with electrocautery and the labrum was removed with a knife. There was a notable floor osteophyte. There was focal chondromalacia of the superior acetabulum. Acetabular reaming began with a 44mm reamer. This first reaming was directed anterior to posterior and medial to get down to the true floor. This was inspected and reamed until the true floor was reached. The anterior retractor was then released and entry and exit was provided by traction on the capsular flaps. I then reamed sequentially up to a 50mm reamer where good fit was obtained. The larger reamers were oriented based on anatomical reference of the anterior and lateral whipple to ensure proper abduction and anteversion. Positioning and size was confirmed with the fluoroscopy. A 50mm Depuy Comer acetabular component was selected. The acetabulum was reamed around the periphery with the selected acetabular size to prevent a rim fit. The deep tissues were irrigated. The acetabular component was then impacted in a position of about 40-45 degrees of abduction and 15-20 degrees of anteversion, using the patient?s anatomy as the ultimate landmark. Fluoroscopy was used to confirm this. There was excellent grades 7 and 8 visiting teacher of the acetabular component and the inserting handle was removed. The acetabular liner, Depuy [id number] polyethylene liner, was inserted and lined up with the tines of the acetabular component. There was no soft tissue in terposition. The liner was then impacted into position and confirmed to be well-seated. A portion of the maria esther-articular cocktail was then injected around the acetabulum into the capsule and periosteum. This cocktail consisted of 123mg of Ropivacaine, 0.25mg of Epinephrine, 0.04mg of Clonidine, and 15mg of Ketorolac, diluted to 50cc. The leg was rotated to 120 degrees. Any remaining medial capsule was released until the lesser trochanter was easily palpable. A retractor was placed medially. The lateral capsule was further released into the shoulder to allow access to the greater trochanter. A Thorpe retractor was placed over the greater trochanter which allowed the trochanter to flip in front of the capsule for excellent exposure. The leg was brought down into maximal extension and 20 degrees of adduction while ensuring there was no impingement on the acetabulum. Any remnant capsule within the trochanter was released. Piriformis and obturator externis were identified and protected. There was excellent access to the proximal femur. The lateral neck remnant was removed with a rongeur. A blunt canal probe was used to identify the canal and trajectory for later broaching. A box osteotome initiated the broach course. A small curved rasp and a curved curette were used to work laterally. Broaching then began with a starter Actis broach. This was inserted manually around the trochanter and into the canal before mallet blows. The broach was seated to a few millimeters below the cut level based on the neck cut and the preoperative template. Sequential broaching was continued with the Kromek pneumatic broaching device until a tight fit was obtained with good rotational control of the femur. A trial standard neck was inserted along with a +5 trial head. The leg was brought out of extension and adduction and then reduced with traction and internal rotation. The leg was stable anteriorly in a position of 30 degrees of extension and 90 degrees of external rotation. Fluoroscopy was used to ensure there was no fracture and the stem was seated well. Leg lengths were checked with an AP pelvis and pelvic reference points. AMX navigation system was used to confirm appropriate positioning and leg length and offset. Once content with the desired offset and leg lengths, the leg was brought back into extension, external rotation and adduction. The periosteum and surrounding tissue was injected with remaining portion of the maria esther-articular cocktail. The proximal femur was irrigated as well as the deep tissues. The [employer] Tops[employer] Analyticsis standard collared stem, size 3, was then manually inserted into the proximal femur making sure to control rotation. It was then malleted into position with light blows, giving breaks to allow bone expansion and decrease risk of fracture. The selected Depuy Altrx Ceramic Head, size 32+5mm, was then placed onto the clean and dry trunnion and secured with impaction onto the tapered fit. The leg was brought back out of extension and adduction and reduced with traction and internal rotation. Stability was confirmed with no shuck at 90 degrees of external rotation and 30 degrees of extension. No impingement through range of motion arc. Final x-ray images were obtained with fluoroscopy to confirm adequate positioning and no intraoperative fracture. The deep tissues were thoroughly irrigated with Surgiphor, betadine solution. This was allowed to sit in the wound for 3 minutes before being thoroughly irrigated out with normal saline. The capsule was then reapproximated with the previously placed Ethibond sutures. The TFL fascia was finally closed with a No. 2 Stratafix, barbed suture. Deep tissues were then reapproximated with 0 Vicryl and a running 2-0 Vicryl. The skin was closed with a running 4-0 Monocryl in a subcuticular fashion. This was reinforced with skin glue. A Mepilex silver dressing was applied. At the end of the case, all counts were correct. Lexy was transferred to the hospital bed without difficulty and suffering no apparent complication. She has a good prognosis. Physical therapy will start today and without restrictions, weight-bearing as tolerated. Aspirin 81mg BID will be used for DVT prophylaxis.
--- NOTE | 2024-01-08 11:40 | IN_ITS ---
PT Notes Visit Reasons: R THR Physical Therapy Day Surgery Initial Evaluation Date: 01/08/2024 Referring Doctor: SAMEERA Garcia PT Orders: PT CONSULT: S/P Ortho Surgery Precautions: WBAT on the right LE with AD. Patient Profile/Admitting Diagnosis: Joce is a 73-year-old female with unilateral primary osteoarthritis of the right hip and status post right anterior total hip arthroplasty on postoperative day 0. PMHX: Medical History (Updated 12/18/23 @ 14:56 by Jeanie Ingram) Dyslipidemia Peroneal tendinitis, right leg Lumbar spondylosis Blood glucose elevated Myalgia Rectal incontinence Right hip pain Gastritis UTI (urinary tract infection) Osteopenia Vaginal pain Vaginal dryness Soft tissue swelling Disequilibrium Memory loss Other specified gastritis without mention of hemorrhage Surgical History (Updated 12/24/23 @ 15:02 by Jeanie Ingram) [place]os[place] [facility] [place] H/O: hysterectomy History of esophagogastroduodenoscopy (EGD) History of cataract surgery Open Carpal Tunnel release Abdominal hysterectomy Colonoscopy - MAC (06/21/18) Cholecystectomy Bilateral salpingectomy with oophorectomy Appendectomy Social History/Home Situation: Lives with in a private home with 3 steps to enter without rails. Independent of all aspects of ADLs prior to surgery without the need for an assistive device although has had increasing difficulty with mobility performance due to worsening arthritis. Equipment Owned/DME: [facility] Subjective: Reported 1/10 pain at rest, 3/10 pain in right hip after walking that resolved with seated rest. Denied headache, chest pain, and lightheadedness throughout session. Objective: General Observation: Mepilex Ag over surgical incision. TEDS to be legs. Mental Status: ANO x 4 as above Pain: ROM: Right Lower Extremity: Hip flexion WFL. Hip abduction WFL. Knee flexion WFL. Ankle dorsiflexion WFL. Ankle plantarflexion WFL. Left Lower Extremity: Hip flexion WFL. Hip abduction WFL. Knee flexion WFL. Ankle dorsiflexion WFL. Ankle plantarflexion WFL. Strength: Right Lower Extremity: Hip flexors 4-/5. Hip abductors 4-/5. Knee flexors 5/5. Knee extensors 4-/5. Ankle dorsiflexors 5/5. Ankle plantarflexors 5/5. Left Lower Extremity:Hip flexors 5/5. Hip abductors 5/5. Knee flexors 5/5. Knee extensors 5/5. Ankle dorsiflexors 5/5. Ankle plantarflexors 5/5. Sensation: Intact as to pain and light pressure in bilateral lower extremities Bed Mobility/Transfers: Minimal cueing provided for use of B hands as needed for support, movement sequence, AD management, and posture to reduce fall risk and minimize pain report Supine to sit standby assist Sit to stand standby assist with FWW Stand to sit standby assist with FWW Bed to chair standby assist with FWW Gait: Facilitated safe and correct performance of level surface ambulation covering a distance of 150 feet using front wheeled walker requiring only standby assist and minimal verbal cueing for movement sequence, AD management, and posture to reduce fall risk and minimize pain report. Stairs: Guided patient with safe and correct negotiation of 3 x 4 inch steps and 2 x 6 inch steps while holding onto bilateral rails requiring only standby assist and minimal verbal cueing for movement sequence, AD management, and posture to reduce fall risk and minimize pain report. Balance: Static Sitting: Normal Dynamic Sitting: Normal Static Standing: Fair Dynamic Standing: Fair Special Tests: Mobility Limitations Standardized Measure [facility] AM-PAC 6 clicks Basic Mobility Inpatient Short Form: Raw Score: 24 CMS Score: 0% deficit Informed Consent/Education: Patient instructed in purpose of PT consult. Packet containing OSMAR exercise protocol has been given to patient. Education and training on initial set of exercises that can be done at home have been completed with patient. Trained patient with correct performance of exercises below to maximize motor control, joint flexibility, soft tissue extensibility of the R hip musculature to facilitate return to independent functional mobility performance. Access Code: [email or web address] URL: [email or web address] Date: 01/08/2024 Prepared by: Shell Robbins Exercises - Gluteal Sets - 1 x daily - 7 x weekly - 1 sets - 10 reps - 5 hold - Supine Heel Slide - 1 x daily - 7 x weekly - 1 sets - 10 reps - 5 hold - Supine Ankle Pumps - 1 x daily - 7 x weekly - 1 sets - 10 reps - 5 hold - Seated March - 1 x daily - 7 x weekly - 1 sets - 10 reps - 5 hold - Seated Long Arc Quad - 1 x daily - 7 x weekly - 1 sets - 10 reps - 5 hold Assessment: Patient requires use of a front wheeled walker for mobility ADL performance to maximize independence and reduce fall risk. Patient presents with clinical signs and symptoms consistent with current/admitting diagnoses that have resulted to mobility limitations, gait instability, generalized weakness, and impairment of motor control as demonstrated by the following impairment level findings: 1. Decreased strength to R hip major muscle groups 2. Impaired standing balance Impairments are contributing to the following functional limitations: 1. Inability to safely ambulate without assistive device 2. Increase completion time for mobility ADL performance 3. Increased fall risk Patient is assessed as a 99250 moderate complexity based on the following: History: 73-year-old female with impairment level findings, functional limitations, and past medical history as indicated above Examination: Demonstrable impairment in strength, balance, and mobility level with underlying impairments and functional limitations as documented above Presentation: Evolving Decision Makin moderate complexity Goals: N/A. PT evaluation and 1-2 treatment sessions only for functional mobility training using recommended AD and for HEP instruction. Plan of Care/Treatment Plan: N/A. PT evaluation and 1-2 treatment session only for functional mobility training using recommended AD and for HEP instruction. DISCHARGE RECOMMENDATIONS: Home when medically cleared by orthopedic surgeon. Recommend outpatient PT services in order to optimize functional mobility outcomes and facilitate return to independent community ambulation without an assistive device. TREATMENT CODE/TIME: 32766 x 20 minutes for 1 unit, 9753 0 x 15 minutes for 1 unit (11:40-12:15). Thank you for the opportunity to participate in the care of this patient. Please sign an return this page within 30 days if you agree with the above POC. Thank you! Physician Signature Date [facility] Thank you for the opportunity to participate in the care of this patient. Shell Robbins PT, DPT, CLT [facility] [place], [place]
--- NOTE | 2024-01-08 11:57 | W.ANESPOSTOP ---
Postoperative Evaluation Date, Time and Location Date Performed: 01/08/24 Time Performed: 11:50 Patient Location: Day Surgery Unit Vital Signs Most Recent Imported Vital Signs: Most Recent Vital Signs Temp Pulse Resp BP Pulse Ox 36.2 C L 74 16 128/54 L 98 01/08/24 10:30 01/08/24 10:30 01/08/24 10:30 01/08/24 10:30 01/08/24 10:30 Pain Score Most Recent Pain Score: Most Recent Pain Score Pain Level 0 01/08/24 10:30 Assessment Mental Status: Awake (Alert & Oriented to Patient Baseline) Airway and Respiratory Function: Patent airway with normal (patient baseline) respiratory exam Cardiovascular Function: Hemodynamically Stable Hydration Status: Adequately Hydrated Nausea & Vomiting: No Nausea or Vomiting Pain: Pain is tolerable per patient Peripheral Nerve Block: Patient did not receive a nerve block
[2024-01-08] MEDS: Tranexamic Acid 650 MG TAB 1300 MG PO (12:16)
== END 2024-01-08 12:30 | disposition home or self-care (01) ==
PROVIDERS: PCP Nurse Practitioner Family; Visit Provider Student in an Organized Health Care Education/Training Program
PROC: (CPT 27130; principal; 2024-01-08 07:30)
DX: M16.11 Unilateral primary osteoarthritis, right hip (principal); E78.5 Hyperlipidemia, unspecified; F41.9 Anxiety disorder, unspecified; F32.A Depression, unspecified
CPT/HCPCS: 20985; 27130; C1776; 97162; 97530; 73501; J0690; J1100; J1885; J2001; J2250; J2371; J2401; J2405; J2704

== ENCOUNTER 2024-01-21 13:23 | Outpatient (CLI) | payer MEDICARE, SELFPAY ==
--- NOTE | 2024-01-21 10:30 | DI.RAD_ITS ---
Exam(s) XR HIP RT COMPLETE AP PELVIS EXAM: XR HIP RT COMPLETE AP PELVIS CLINICAL HISTORY: 1ST POST OP R OSMAR. TECHNIQUE: 2D digital imaging was performed. Two images were obtained. Lateral and AP pelvis views were obtained. COMPARISON: CR XR HIP RT COMPLETE AP PELVIS from 12/03/2023 XA XR HIP RT IN OR from 01/08/2024 FINDINGS: BONES: There are stable post operative changes of a right total hip replacement present. No fracture or dislocation. JOINTS: The orthopedic hardware is in good position. No evidence of hardware loosening. SOFT TISSUE: Vascular calcifications are present. IMPRESSION: Stable right total hip replacement. DATA REPOSITORY: RADIATION DOSE DELIVERED:
== END 2024-01-21 13:24 | disposition home or self-care (01) ==
LOC: DIORS 13:23
PROVIDERS: PCP Nurse Practitioner Family; Referring Provider Nurse Practitioner Family; Visit Provider Student in an Organized Health Care Education/Training Program
DX: Z96.641 Presence of right artificial hip joint (principal); Z47.1 Aftercare following joint replacement surgery
CPT/HCPCS: 73502

== ENCOUNTER → 2024-02-21 10:11 | Outpatient (BNVA) | payer MEDICARE, SELFPAY | PROVIDERS: PCP Nurse Practitioner Family; Referring Provider Nurse Practitioner Family | DX: Z47.1 Aftercare following joint replacement surgery (principal); Z96.641 Presence of right artificial hip joint ==

== ENCOUNTER → 2024-04-03 09:16 | Outpatient (BNVA) | payer MEDICARE, SELFPAY | PROVIDERS: PCP Nurse Practitioner Family; Referring Provider Nurse Practitioner Family; Visit Provider Student in an Organized Health Care Education/Training Program | DX: Z47.1 Aftercare following joint replacement surgery (principal); Z96.641 Presence of right artificial hip joint ==

== ENCOUNTER → 2024-05-27 01:33 | Outpatient (CLI) | payer MEDICARE, SELFPAY ==
--- NOTE | 2024-05-27 | DI.MAMMO_ITS ---
Exam(s) MAMMO SCREENING EXAM: MAMMO SCREENING CLINICAL HISTORY: Screening, Z12.31. TECHNIQUE: Bilateral full field digital CC and MLO mammographic images were obtained with 3D tomosyn thesis and utilizing computer aided detection (CAD). COMPARISON: Prior mammograms were reviewed. FINDINGS: There has been no significant change in the appearance and distribution of the fibroglandular tissue. No CAD designations. There are no new spiculated masses nor malignant appearing microcalcification groups. Small benign-appearing nodule laterally in the right breast located 9 cm in from the nipple on the CC view is unchanged from prior mammograms. There is no significant architectural distortion nor skin thickening-retraction. IMPRESSION: No radiographic evidence of malignancy. BI-RADS Category 1 - Negative Breast Density - Category B - Scattered areas of fibroglandular density Breast density Category C or D implies that the patient has dense breast tissue. Dense breast tissue can make it harder to find cancer on a mammogram. Dense breast tissue is also associated with an incr eased risk of breast cancer. This information about the result of the mammogram report was provided to the patient to raise their awareness. Use this report when you speak with the patient about their risks for breast cancer, which includes their family history. At that time, you may recommend additional screening tests (Ultrasoun d or MRI) as these tests may add significant information. A negative radiographic report should not delay biopsy if a dominant or clinically suspicious mass is present. Up to ten percent of cancers are not identified on mammography. A negative report may reinforce clinical impression. Adenosis and dense breasts may obscure an underlying neoplasm. False positive reports average 6 to 10%. Patient will receive a letter notifying them of these results.
== END ==
PROVIDERS: PCP Nurse Practitioner Family; Visit Provider Nurse Practitioner Family
DX: Z12.31 Encounter for screening mammogram for malignant neoplasm of breast (principal)
CPT/HCPCS: 77063; 77067

== ENCOUNTER 2024-05-29 13:35 | Outpatient (CLI) | payer MEDICARE, SELFPAY ==
--- NOTE | 2024-05-29 09:30 | DI.RAD_ITS ---
Exam(s) XR HIP RT AP LAT ONLY EXAM: XR HIP RT AP LAT ONLY CLINICAL HISTORY: hip pain s/p fall. TECHNIQUE: 2D digital imaging was performed. COMPARISON: CR XR HIP RT COMPLETE AP PELVIS from 01/21/2024 FINDINGS: 3 views There is stable position alignment of the components of the right hip prosthesis. No fracture or loo sening evident. No evidence of osteomyelitis. IMPRESSION: Stable satisfactory appearance. DATA REPOSITORY: RADIATION DOSE DELIVERED:
== END 2024-05-29 13:36 | disposition home or self-care (01) ==
LOC: DIORS 13:35
PROVIDERS: PCP Nurse Practitioner Family; Referring Provider Nurse Practitioner Family
DX: Z47.1 Aftercare following joint replacement surgery (principal); M76.31 Iliotibial band syndrome, right leg; Z96.641 Presence of right artificial hip joint
CPT/HCPCS: 99213; 73502

== ENCOUNTER 2024-07-23 16:34 | Outpatient (CLI) | payer MEDICARE, SELFPAY ==
--- NOTE | 2024-07-23 | DI.RAD_ITS ---
Exam(s) XR CHEST 2V PA LATERAL EXAM: XR CHEST 2V PA LATERAL CLINICAL HISTORY: R05.9 cough TECHNIQUE: 2D digital imaging was performed. Two views. COMPARISON: No exams were available for comparison FINDINGS: HEART: Normal size. Aorta: Not dilated. PULMONARY VASCULATURE: Normal. MEDIASTINUM: Unremarkable. LUNGS: Clear. PLEURAL SPACE: No pleural effusion or pneumothorax. BONE:Unremarkable for age. SOFT TISSUES: Unremarkable. IMPRESSION: No acute abnormality. DATA REPOSITORY: RADIATION DOSE DELIVERED:
== END 2024-07-23 16:54 ==
LOC: DI 16:36
PROVIDERS: PCP Nurse Practitioner Family; Visit Provider Physician Assistant Medical
DX: R05.9 Cough, unspecified (principal)
CPT/HCPCS: 71046

== ENCOUNTER 2025-01-08 13:27 | Outpatient (CLI) | payer MEDICARE, SELFPAY ==
--- NOTE | 2025-01-08 09:45 | DI.RAD_ITS ---
Exam(s) XR HIP RT AP LAT ONLY EXAM: XR HIP RT AP LAT ONLY INDICATION: ANNUAL F/U R OSMAR. COMPARISON: CR XR HIP RT AP LAT ONLY from 05/29/2024 TECHNIQUE: 2D digital imaging was performed. Two views. FINDINGS: Stable alignment of right hip prosthesis. No abnormal surrounding bony lucencies. DATA REPOSITORY: RADIATION DOSE DELIVERED:
== END 2025-01-08 13:28 | disposition home or self-care (01) ==
LOC: DIORS 13:27
PROVIDERS: Visit Provider Physician Assistant
DX: Z96.641 Presence of right artificial hip joint (principal); M70.61 Trochanteric bursitis, right hip; M76.31 Iliotibial band syndrome, right leg
CPT/HCPCS: 20610; 99213; J1010; 73502

== ENCOUNTER 2025-03-13 10:13 | Outpatient (REF) | payer MEDICARE, SELFPAY ==
[2025-03-13 15:54] LABS: ALT 29 U/L (14-59); AST 20 U/L (15-37); Albumin 4.1 g/dL (3.4-5.0); Alkaline Phosphatase 75 U/L (46-116); Anion Gap 9.4 mmol/L (3-11); BUN 18 mg/dL (7-18); Bilirubin, Total 0.7 mg/dL (0.2-1.0); CO2 25.6 mmol/L (21.0-32.0); CREATININE 0.7 mg/dL (0.55-1.02); Calcium 9.5 mg/dL (8.5-10.1); Calculated LDL 165 mg/dL (<100); Chloride 104 mmol/L (98-107); Cholesterol 285 mg/dL (<200); Estimated GFR 91.83 (mL/min/1.73m2); Glucose 112 mg/dL (74-106); HDL Cholesterol 50 mg/dL (>or=50); Potassium 4.2 mmol/L (3.5-5.1); Sodium 139 mmol/L (136-145); Total Protein 7.3 g/dL (6.4-8.2); Triglyceride 354 mg/dL (<150)
[2025-03-13 16:34] LABS: Hemoglobin A1C 6.2 % (<5.7)
== END 2025-03-13 10:14 | disposition home or self-care (01) ==
LOC: NCHCN 10:13
PROVIDERS: PCP Nurse Practitioner Family; Visit Provider Nurse Practitioner Family
DX: E78.5 Hyperlipidemia, unspecified (principal); R73.9 Hyperglycemia, unspecified
CPT/HCPCS: 80053; 80061; 83036

== ENCOUNTER 2025-03-25 02:13 | Outpatient (CLI) | payer MEDICARE, SELFPAY ==
--- NOTE | 2025-03-25 | DI.MRI_ITS ---
Exam(s) MR LUMBAR SPINE WO EXAM: MR LUMBAR SPINE WO CLINICAL HISTORY: LUMBOSACRAL RADICULOPATHY,M54.17,. TECHNIQUE: Multiplanar multisequence MRI of the Lumbar spine was performed. COMPARISON: MR MR LUMBAR SPINE WO from 07/29/2020 CR XR HIP RT COMPLETE AP PELVIS from 12/03/2023 FINDINGS: There are no plain films available at the time of this MRI interpretation. There may be transitional anatomy here which would be important if this patient is ever to be a surgical candidate. For the purposes of the study levels are discussed so as to correspond to the report of the prior MRI of July 2020. Conus medullaris is at T12 level. There is no evidence of conus mass nor subjacent clumping of intra thecal nerve roots to suggest arachnoiditis. 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 Bones:There are no fractures nor ominous osseous lesions in the lumbar vertebral bodies and visualize d sacrum. There is a small benign intraosseous hemangioma in the anterior left side of S1 vertebral body With respect to the individual levels... T12-L1: Unremarkable L1-2: There is diminished disc height and signal which was not evident previously on the MRI scan of 2019.. There is now anterior osseous lipping. Posteriorly there is now broad annular bulging which extends into the floor both exiting neural foramina. There is mild central spinal canal stenosis now evident due to the broad annular bulging, short AP dimensions of the pedicles and mild facet joint d egenerative changes. Although the disc bulge extends into the bilateral exiting neural foramina, the re is only mild foraminal stenosis on the left side. There is mild-moderate foraminal stenosis on th e right side. L2-3: This level again exhibits chronic disc space narrowing and posteriorly there is again noted bro ad relatively symmetrical annular bulging which extends into the floor both exiting neural foramina. There is moderate central spinal canal stenosis now evident at this level. There is only mild bilat eral foraminal stenosis. Minimal degenerative changes in the facet joints. L3-4: This level exhibits relatively preserved disc height. Posteriorly there is also broad annular bulging which extends into the floor both exiting neural foramina. There is mild central spinal yemi l stenosis. There is no significant foraminal stenosis on either side. Facet joints unremarkable. L4-5: This level exhibits mild decreased disc height when compared to the prior 2019 study and there is now broad annular bulging with a superimposed central-right of center asymmetric annular bulge. T here is severe central spinal canal stenosis at this level evident. There is also significant forami nal stenosis more prominent on the left than right side, more so than previous. L5-S1: Preserved disc height and signal. No disc herniation or central canal stenosis nor foraminal stenosis. In the appearance of the L5-S1 disc space is most probably related to an element of sacral ization of the L5 segment Soft tissues: paraspinal soft tissues appear unremarkable. IMPRESSION: 1. Compared to the prior MRI scan 07/29/2020 there has been progression degenerative disc disease at a few levels as described above and subsequent progression both central spinal canal stenosis and for aminal stenosis, as described per individual level above. 2. The most significant spinal canal stenosis is at the L4-5 level (severe) which has significantly p rogressed further when compared to the 2019 study and is associated with mild-moderate left-sided for aminal stenosis at this level. 3. Significant disc height loss at L1-2 level when compared to the prior MRI study of 2019. There is now mild central canal stenosis at this level. There is moderate central canal stenosis now evident at L2-3 level and mild central canal stenosis at L3-4 level. DATA REPOSITORY:
== END 2025-03-25 02:33 ==
LOC: DI 02:13
PROVIDERS: PCP Nurse Practitioner Family; Visit Provider Nurse Practitioner Family
DX: M54.17 Radiculopathy, lumbosacral region (principal); M48.061 Spinal stenosis, lumbar region without neurogenic claudication
CPT/HCPCS: 72148

== ENCOUNTER 2025-06-03 10:40 | Outpatient (CLI) | payer MEDICARE, SELFPAY ==
[2025-06-03 10:59] VITALS: BP 124/73; PULSE 70; RESP 18; TEMP 36.9; O2SAT 98
[2025-06-03 11:23] VITALS: PULSE 74; RESP 18; O2SAT 98
[2025-06-03 11:24] VITALS: BP 191/75; PULSE 67; PULSE 70; RESP 9; O2SAT 98
[2025-06-03 11:30] VITALS: PULSE 68; PULSE 69; RESP 11
[2025-06-03 11:31] VITALS: BP 182/91; PULSE 66; PULSE 68; RESP 13; O2SAT 98
[2025-06-03 11:37] VITALS: BP 183/81; PULSE 67; PULSE 69; RESP 15; O2SAT 98
--- NOTE | 2025-06-03 11:38 | DI.RAD_ITS ---
Exam(s) XR PAIN CLINIC LUMBAR SP 2V EXAM: XR PAIN CLINIC LUMBAR SP 2V CLINICAL HISTORY: Dx: Lumbar Spondylosis. TECHNIQUE: Fluoroscopy was provided for the referring physician for guidance with performing pain clinic injection procedure. COMPARISON: No exams were available for comparison FINDINGS: Please see procedure note for details. Fluoro time: 47.8 seconds RADIATION DOSE DELIVERED: mega Marion=13.67 mGy
[2025-06-03] MEDS: Bupivacaine 0.5% Pres-Free 10 ML VIAL IJ (11:47)
[2025-06-03] MEDS: Omnipaque 240 MG/ML 50 ML BTL IJ (11:47)
[2025-06-03] MEDS: Nerve Block Tray 1 EACH MC (11:47)
--- NOTE | 2025-06-03 13:17 | PDOC.PAIN ---
Date of service: 06/03/25 Time of Service: 13:17 Pain Managment Procedure Note Procedure Note Procedure Note: PROCEDURE NOTE Bilateral Lumbar Medial Branch Blocks Date of Service: June 03, 2025 Patient: Lexy Beauchamp Provider: Fritz Aceves DO, MPH Lexydanni Beauchamp has been [facility] for lumbar medial branch blocks. Pre-operative diagnosis: Lumbar Spondylosis without Myelopathy ICD-10 M47.816 Post-operative diagnosis: Same Pre-procedure pain: VAS= 7/10 COMMENTS: She was previously seen in our clinic. No change in her symptoms. Lexy? was interviewed and the medical records were reviewed. There were no medical, pharmacologic, radiographic or other structural contraindications to attempting fluoroscopically guided local anesthetic lumbar medial branch blocks. Risks and potential side effects were discussed. I also discussed the potential benefit(s) of the procedure with Lexy, and voiced concerns were addressed. After Lexy was completely informed about the procedure, the printed consent form was signed. A standard time-out procedure was performed. Lexy was placed in the prone position on the fluoroscopy table. Automated blood pressure cuff and pulse oximeter were applied. The skin entry points for approaching the anatomic target points of the segmental medial branches of bilateral L3,L4,L5 were identified with fluoroscopy and marked. The skin at the target site area was thoroughly prepared with Chlorhexadine. The skin was then draped. Next, a 25 gauge 3.5 spinal needle was placed under fluoroscopic guidance down on to the target point (the articular pillar) for each respective segmental medial branch. Position was confirmed in A/P and lateral views. Aspiration revealed no blood or clear fluid. Next, 0.25ml of omnipaque 240 was injected at each level. No contrast following a vascular or neural pattern was visualized under continuous fluoroscopy. Next, 0.25 ml of preservative-free 0.5% bupivicaine was injected at each level. There was no unusual discomfort expressed by Lexy. The needles were withdrawn without difficulty. (49 mls of Omnipaque was wasted) Lexy was observed and was without hemodynamic, neurologic, or allergic reactions.? Fluoroscopic images were digitally archived. Provacative testing using the Modified Booker's facet loading test- Left side Right Side Directly before the block VAS (0-10) = 7/10 VAS (0-10) = 7/10 Five minutes after the block VAS (0-10) = 1/10 VAS (0-10) = 1/10 Percentage relief obtained with this diagnostic block 90% 90% Any improved physical functioning directly after the blocks? Able to move her low back much better. Follow up plans and appointments were discussed with Lexy. Lexy was instructed to keep careful note of how the usual pain was modified by these injections. Specifically, to keep a pain diary for the next 4 hours using a numeric pain scale of 0-10 and report these results. Post procedure instruction was given as documented in the nursing documentation and having met discharge criteria, the patient was [facility]. Based on the medial branches blocked today, if they patient has adequate relief and we are able to proceed to radiofrequency ablation, the treatment should result in the denervation of the bilateral L4-L5 and L5-S1 facet joints. We would expect to denervate a total of 4 facets during the radiofrequency ablation. COMMENTS: No apparent complications. Post-procedure pain: VAS= 1/10 Lexy will call back with 0-4 hour post-procedure pain scores. I personally performed the entire procedure. FRITZ ACEVES DO, MPH ABPM&R-subspecialty board certification in Pain Medicine [facility] [facility] Coding Conscious Sedation used for procedure: No CPT Codes: LMBB (includes Fluoro) Lumbar/Sacral, 2nd lvl - 46334 ([id number] ~G) LMBB (includes Fluoro) Lumbar/Sacral, single lvl *BILATERAL* - 3137801 ([id number]~G5) Additional Codes: Date of Service (50470) Date of service: 06/03/25 Diagnoses: Lumbosacral spondylosis without myelopathy
== END 2025-06-03 10:41 | disposition home or self-care (01) ==
LOC: PC 10:40
PROVIDERS: PCP Nurse Practitioner Family; Visit Provider Preventive Medicine Occupational Medicine
DX: M54.50 Low back pain, unspecified (principal); M47.816 Spondylosis without myelopathy or radiculopathy, lumbar region
CPT/HCPCS: 64493; 64494; 72100; J0665; Q9967

== ENCOUNTER 2025-06-17 09:59 | Outpatient (CLI) | payer MEDICARE, SELFPAY ==
[2025-06-17] VITALS (7 sets, daily range): BP systolic 133–184; BP diastolic 64–74; PULSE 68–82; RESP 12–18; TEMP 36.3; O2SAT 98–99
--- NOTE | 2025-06-17 06:00 | DI.RAD_ITS ---
Exam(s) XR PAIN CLINIC LUMBAR SP 2V EXAM: XR PAIN CLINIC LUMBAR SP 2V CLINICAL HISTORY: Dx: Lumbar Spondylosis TECHNIQUE: 2D and realtime digital imaging was performed. CONTRAST MATERIAL: Refer to procedure report. COMPARISON: No exams were available for comparison FINDINGS: Fluoroscopy was provided for Dr. Aceves during the performance of a lumbar medial branch blocks. Please refer to the procedure report for complete details. Ka,r=15.6 mGy IMPRESSION: RADIATION DOSE DELIVERED: 0.0 0.0 0
--- NOTE | 2025-06-17 10:45 | PDOC.PAIN_ITS ---
Date of service: 06/17/25 Time of Service: 10:45 Pain Managment Procedure Note Procedure Note Procedure Note: PROCEDURE NOTE Bilateral Lumbar Medial Branch Blocks Date of Service: June 17, 2025 Patient: Lexy Beauchamp Provider: Fritz Aceves DO, MPH Lexy Beauchamp has been referred to the [facility] for lumbar medial branch blocks. Pre-operative diagnosis: Lumbar Spondylosis without Myelopathy ICD-10 M47.816 Post-operative diagnosis: Same Pre-procedure pain: VAS= 7/10 COMMENTS: She did very well with the first LMBBs on 06/03/25. Her low back pain has returned. Lexy? was interviewed and the medical records were reviewed. There were no medical, pharmacologic, radiographic or other structural contraindications to attempting fluoroscopically guided local anesthetic lumbar medial branch blocks. Risks and potential side effects were discussed. I also discussed the potential benefit(s) of the procedure with Lexy, and voiced concerns were addressed. After Lexy was completely informed about the procedure, the printed consent form was signed. A standard time-out procedure was performed. Lexy was placed in the prone position on the fluoroscopy table. Automated blood pressure cuff and pulse oximeter were applied. The skin entry points for approaching the anatomic target points of the segmental medial branches of bilateral L3,L4,L5 were identified with fluoroscopy and marked. The skin at the target site area was thoroughly prepared with Chlorhexadine. The skin was then draped. Next, a 25 gauge 3.5 spinal needle was placed under fluoroscopic guidance down on to the target point (the articular pillar) for each respective segmental medial branch. Position was confirmed in A/P and lateral views. Aspiration revealed no blood or clear fluid. Next, 0.25ml of omnipaque 240 was injected at each level. No contrast following a vascular or neural pattern was visualized under continuous fluoroscopy. Next, 0.25 ml of preservative-free 0.5% bupivicaine was injected at each level. There was no unusual discomfort expressed by Lexy. The needles were withdrawn without difficulty. (49 mls of Omnipaque was wasted) Lexy was observed and was without hemodynamic, neurologic, or allergic reactions.? Fluoroscopic images were digitally archived. Provacative testing using the Modified Booker's facet loading test- Left side Right Side Directly before the block VAS (0-10) = 7/10 VAS (0-10) = 7/10 Five minutes after the block VAS (0-10) = 0/10 VAS (0-10) = 0/10 Percentage relief obtained with this diagnostic block 100% 100% Any improved physical functioning directly after the blocks? Able to flex and extend the low back with little difficulty. Follow up plans and appointments were discussed with Lexy. Lexy was instructed to keep careful note of how the usual pain was modified by these injections. Specifically, to keep a pain diary for the next 4 hours using a numeric pain scale of 0-10 and report these results. Post procedure instruction was given as documented in the nursing documentation and having met discharge criteria, the patient was [facility] from the [facility]. Based on the medial branches blocked today, if they patient has adequate relief and we are able to proceed to radiofrequency ablation, the treatment should result in the denervation of the bilateral L4-L5 and L5-S1 facet joints. We would expect to denervate a total of 4 facets during the radiofrequency ablation. COMMENTS: No apparent complications. Post-procedure pain: VAS= 0/10 Lexy will call back with 0-4 hour post-procedure pain scores. I personally performed the entire procedure. FRITZ ACEVES DO, MPH ABPM&R-subspecialty board certification in Pain Medicine [facility] Coding Conscious Sedation used for procedure: No CPT Codes: LMBB (includes Fluoro) Lumbar/Sacral, 2nd lvl - 50322 (1706931 ~G) LMBB (includes Fluoro) Lumbar/Sacral, single lvl *BILATERAL* - [id number] ([id number]~G5) Additional Codes: Date of Service (31444) Date of service: 06/17/25 Diagnoses: Lumbosacral spondylosis without myelopathy
[2025-06-17] MEDS: Omnipaque 240 MG/ML 50 ML BTL IJ (10:50)
[2025-06-17] MEDS: Bupivacaine 0.5% Pres-Free 10 ML VIAL IJ (10:50)
[2025-06-17] MEDS: Nerve Block Tray 1 EACH MC (10:50)
== END 2025-06-17 10:00 | disposition home or self-care (01) ==
LOC: PC 09:59
PROVIDERS: PCP Nurse Practitioner Family; Visit Provider Preventive Medicine Occupational Medicine
DX: M54.50 Low back pain, unspecified (principal); M47.816 Spondylosis without myelopathy or radiculopathy, lumbar region
CPT/HCPCS: 64493; 64494; 72100; J0665; Q9967

== ENCOUNTER 2025-08-20 11:55 | Outpatient (CLI) | payer MEDICARE, SELFPAY ==
[2025-08-20] VITALS (15 sets, daily range): BP systolic 111–194; BP diastolic 63–135; PULSE 67–80; RESP 13–20; TEMP 37; O2SAT 95–99
--- NOTE | 2025-08-20 06:00 | DI.RAD_ITS ---
Exam(s) XR PAIN CLINIC LUMBAR SP 2V EXAM: XR PAIN CLINIC LUMBAR SP 2V CLINICAL HISTORY: DX: Lumbar Spondylosis TECHNIQUE: 2D and realtime digital imaging was performed. CONTRAST MATERIAL: Refer to procedure report. COMPARISON: No exams were available for comparison FINDINGS: Fluoroscopy was provided for Dr. Aceves during the performance of a radiofrequency ablation. Please refer to the procedure report for complete details. Ka,r=13.7 mGy IMPRESSION: RADIATION DOSE DELIVERED: 0.0 0.0 0
[2025-08-20] MEDS: Midazolam 2 MG/2 ML VIAL IVP (13:10)
[2025-08-20] MEDS: fentaNYL 100 MCG/2 ML VIAL IJ ×2 (13:10→13:20)
[2025-08-20] MEDS: Nerve Block Tray 1 EACH MC (13:26)
[2025-08-20] MEDS: Lactated Ringers 500 ML 30 ML IV (13:30)
[2025-08-20] MEDS: Lidocaine 2% Multi-Dose 20 ML VIAL IJ (13:56)
[2025-08-20] MEDS: Bupivacaine 0.5% Pres-Free 10 ML VIAL IJ (13:56)
[2025-08-20] MEDS: methylPREDNISolone ACETATE 40 MG/ML VIAL IJ (13:56)
--- NOTE | 2025-08-23 20:17 | PDOC.PAIN_ITS ---
Date of service: 08/20/25 Time of Service: 13:00 Pain Managment Procedure Note Procedure Note Procedure Note: PROCEDURE NOTE BILATERAL LUMBAR RADIOFREQUENCY ABLATION Date of Service: August 20, 2025 Patient:? Lexy Beauchamp? Provider:? Fritz Aceves DO, MPH Lexy Beauchamp has been [facility] to the [facility] for Bilateral Lumbar Radiofrequency Ablation with the AvFromUss Machine.? Pre Operative Diagnosis: Lumbosacral Spondylosis without Myelopathy ICD-10 M47.816 Post Operative Diagnosis: Same Pre procedure pain; VAS= 7/10 Comments: Great relief with LMBBs X 2 PROCEDURE: Radiofrequency Ablation of medial branches - bilateral L3, L4, L5 and lateral branches of bilateral S1. Lexy?was interviewed and the medical record was reviewed.? There were no medical, pharmacologic, radiographic or other structural contraindications to attempting fluoroscopically guided BILATERAL Lumbar Radiofrequency Ablation.?Risks and expected side effects as well as potential benefit of the procedure were reviewed with Lexy, and the patient's voiced concerns were addressed.? The printed consent form was signed.? Standard time-out procedure was performed. Lexy was brought into the fluoroscopy suite and positioned into the prone position on the fluoroscopy table and allowed to adjust to a position of comfort. A grounding pad was placed on the left abdomen. The sterile field was prepared using chlorhexidine preparation of the skin and sterile draping. Local anesthesia superficial and deep was provided by local infiltration of 2% lidocaine. A 17g 100 mm radiofrequency introducer needle was placed to the planned anatomic targets guided with intermittent fluoroscopy with a perpendicular approach to terminally place at the junction of the superior articular process and the transverse process of the bilateral L4, L5, the base of the sacral ala on the bilateral for the L5 medial branch nerve and the area between base of the sacral ala to the S1 foramen bilaterally. The stylets were removed and radiofrequency probes with a 4mm active tip were then inserted. Needle tip position of the probes was verified in the AP, oblique, and lateral views. At each site, the medial branch nerve was stimulated at 2 Hz to a maximum 1-2 volts determined to finalize safe needle and electrode placement. The patient was awake and responsive during this portion of the procedure. Each target was anesthetized with 1-2 mL of 2 % Lidocaine for anesthesia for lesioning and then each target was lesioned at 80 degrees Celsius for 2 minutes and 30 seconds. Tissue impedances were noted to be between 250 and 500 Ohms. Next, I injected 1/4 cc of Depomedrol (40 mg/cc) followed by 1/2 cc of 0.5% Bupivacaine at each segmental sensory nerve. There was no unusual discomfort expressed by Lexy. The needles were withdrawn without difficulty and bandages placed over the needle placement sites, the patient was observed and was without hemodynamic, neurologic, or allergic reactions. Fluoroscopic images were digitally archived. POST PROCEDURE EVALUATION: IMPRESSION: 1. Summary of procedure. Medication given is documented in the MAR. 2. Follow up plan: Lexy to contact [facility] as needed.?This procedure may be repeated if the patient achieves at least 50% improvement in pain/function for at least 6 months. 3. Estimated Blood Loss: <5 mls 4. Fluoroscopy time: Documented in the EMR. Follow up plans and appointments were discussed with the Lexy. Post procedure instruction was given as documented in nursing documentation and having met discharge criteria, Lexy was discharged from the [facility]. This advanced procedure uses cooled radiofrequency energy to safely target the sensory nerves responsible for sending pain signals.1 A radiofrequency generator transmits a small current of Radiofrequency energy through an insulated electrode, or probe, placed within tissue. Ionic heating, produced by the friction of charged molecules, thermally deactivates the nerves responsible for sending pain signals to the brain. Radiofrequency energy heats and cools the tissue at the site of pain. Unlike other Radiofrequency procedures, Coolief circulates water through the device while heating nervous tissue to create a larger treatment area, increasing the opportunity to help with pain. This combination targets the pain- transmitting nerves without excessive heating, leading to pain relief. COMMENTS: No apparent complications. Post-procedure pain: VAS= 0/10. I personally completed the entire procedure. FRITZ ACEVES DO, MPH ABPM&R - Subspecialty board certification in Pain Medicine [facility] Coding Conscious Sedation used for procedure: Yes CPT Codes: Single Facet Joint, Lumbar/Sacral *BILATERAL* - 094930T ([id number]~G) Single Facet Joint, Lumbar/Sacral cool each add'l - 90298Z (22999W11~G) Additional Codes: Date of Service (58255) Date of service: 08/20/25 Diagnoses: Lumbosacral spondylosis without myelopathy
== END 2025-08-20 11:56 | disposition home or self-care (01) ==
LOC: PC 11:56
PROVIDERS: PCP Nurse Practitioner Family; Visit Provider Preventive Medicine Occupational Medicine
DX: M54.50 Low back pain, unspecified (principal); M47.816 Spondylosis without myelopathy or radiculopathy, lumbar region
CPT/HCPCS: 64635; 64636; 72100; J0665; J1010; J2003; J2250; J3010

== ENCOUNTER 2025-09-18 13:27 | Outpatient (REF) | payer MEDICARE, SELFPAY ==
[2025-09-18 15:51] LABS: ESR 14 mm/hr (0-30)
[2025-09-18 16:23] LABS: TSH (W/Ref FT4) 1.91 uIU/mL (0.36-3.74)
[2025-09-18 16:31] LABS: C-Reactive Protein < 0.50 mg/dL (<or=0.5)
== END 2025-09-18 13:28 | disposition home or self-care (01) ==
LOC: NCHCN 13:27
PROVIDERS: PCP Nurse Practitioner Family; Visit Provider Nurse Practitioner Family
DX: M35.3 Polymyalgia rheumatica (principal)
CPT/HCPCS: 85652; 84443; 86038; 86140; 86431

== ENCOUNTER → 2025-11-03 00:52 | Outpatient (CLI) | payer MEDICARE, SELFPAY ==
--- NOTE | 2025-11-03 | DI.MAMMO_ITS ---
Exam(s) MAMMO SCREENING EXAM: MAMMO SCREENING CLINICAL HISTORY: SCREENING, Z12.31. TECHNIQUE: Bilateral full field digital CC and MLO mammographic images were obtained with 3D tomosynthesis and utilizing computer aided detection (CAD). COMPARISON: Prior mammograms were reviewed. FINDINGS: There has been no significant change in the appearance and distribution of the fibroglandular tissue. Small benign-appearing nodule located laterally in the right breast is unchanged from prior mammograms. There are no new spiculated masses nor malignant appearing microcalcification groups. There is no significant architectural distortion nor skin thickening-retraction. IMPRESSION: No radiographic evidence of malignancy. Stable benign findings. BI-RADS Category 2 - Benign Findings Breast Density - Category B - There are scattered areas of fibroglandular density. Breast density Category C or D implies that the patient has dense breast tissue. Dense breast tissue can make it harder to find cancer on a mammogram. Dense breast tissue is also associated with an increased risk of breast cancer. This information about the result of the mammogram report was provided to the patient to raise their awareness. Use this report when you speak with the patient about their risks for breast cancer, which includes their family history. At that time, you may recommend additional screening tests (Ultrasound or MRI) as these tests may add significant information. A negative radiographic report should not delay biopsy if a dominant or clinically suspicious mass is present. Up to ten percent of cancers are not identified on mammography. A negative report may reinforce clinical impression. Adenosis and dense breasts may obscure an underlying neoplasm. False positive reports average 6 to 10%. Patient will receive a letter notifying them of these results.
== END ==
LOC: DI 00:52
PROVIDERS: PCP Nurse Practitioner Family; Visit Provider Nurse Practitioner Family
DX: Z12.31 Encounter for screening mammogram for malignant neoplasm of breast (principal)
CPT/HCPCS: 77063; 77067